=== PATIENT | male | born 1945 | race Caucasian/White ===

== ENCOUNTER 2018-07-08 14:52 | Inpatient (IN) ==
[~2018-07-08 14:52] MED LIST: *HR* Dextrose 50 % in Water (Syg) 50 ML SYRINGE IVC ONE; *HR* EPINEPHrine 1 MG/10 ML SYRINGE IVP ONE; *HR* Norepinephrine 4 MG/4 ML VIAL IVC ONE; D5% in Water 250 ML IV BAG IV ONE
[2018-07-08] MEDS ORDERED: 0.9 % Sodium Chloride 1,000 ML IVC ONE ×3 (15:08→20:37)
[2018-07-08] MEDS ORDERED: 0.9 % Sodium Chloride 1,000 ML ONE ×2 (15:09→19:22)
--- NOTE | 2018-07-08 15:09 | Emergency Department Note ---
Disposition Clinical Impression: Pneumonia, GEM (acute kidney injury), Epistaxis, GI bleeding, Sepsis Disposition: Admitted As Inpatient Condition: Good General Adult HPI - General Chief complaint: ED General Medical Stated complaint: Low BP, Nose bleed Time Seen by Provider: 07/08/18 15:01 Source: patient, EMS Limitations: no limitations - History of Present Illness Pain Scale: 0 - Related Data Home Medications Medication Instructions Recorded Confirmed Carvedilol [Coreg] 12.5 mg PO BID 02/10/16 07/08/18 Furosemide [Lasix] 80 mg PO DAILY 02/10/16 07/08/18 Lisinopril [Zestril] 20 mg PO DAILY 02/10/16 07/08/18 Pantoprazole Sodium [Protonix] 40 mg PO DAILY 02/10/16 07/08/18 Rivaroxaban [Xarelto] 20 mg PO DAILY 02/10/16 07/08/18 Spironolactone [Aldactone] 12.5 mg PO DAILY 02/10/16 07/08/18 Albuterol Sulfate [Albuterol 2 puff IH Q4HR PRN 07/08/18 07/08/18 Inhaler] Allopurinol [Zyloprim 100 MG] 100 mg PO DAILY 07/08/18 07/08/18 Ferrous Sulfate [Iron] 325 - 650 mg PO DAILY 07/08/18 07/08/18 Previous Rx's Medication Instructions Recorded Ipratropium/Albuterol Neb [Duoneb] 3 ml IH Q6HR 30 Days 02/14/16 Isosorbide MONOnitrate (24 HR) 30 mg PO DAILY 30 Days tab.er.24h 02/14/16 [Imdur] Allergies Allergy/AdvReac Type Severity Reaction Status Date / Time No Known Allergies Allergy Verified 07/08/18 17:28 Past Medical History - Past Medical History Medical history: Reports: atrial fibrillation, COPD, myocardial infarction, TIA Surgical history: Reports: coronary bypass (CABG), pacemaker/AICD (subsequent removal due to inf in Jul 2015) Psychiatric history: Reports: no psych history - Social History Smoking Status: Former smoker Smokeless Tobacco Status: No Alcohol use: Reports: none Drug use: Reports: none Physical Exam - General Limitations: no limitations General appearance: alert, in no apparent distress Course Vital Signs Temperature 97.8 F 07/08/18 15:02 Pulse Rate 86 07/08/18 15:02 Respiratory Rate 15 07/08/18 15:02 Blood Pressure 79/49 07/08/18 15:02 O2 Sat by Pulse Oximetry 100 07/08/18 15:02 Temperature 97.8 F 07/08/18 15:02 Pulse Rate 104 07/08/18 18:53 Respiratory Rate 34 07/08/18 19:16 Blood Pressure 124/56 07/08/18 18:53 O2 Sat by Pulse Oximetry 91 07/08/18 19:16 Oxygen Delivery Oxygen Delivery Bipap Medical Decision Making - Lab Data Result diagrams: 07/08/18 15:05 07/08/18 15:05 Lab Results 07/08/18 07/08/18 07/08/18 Range/Units 15:05 15:05 15:05 WBC 24.9 H (4.3-11.1) K/mcL RBC 3.13 L (4.19-5.50) M/mcL Hgb 10.4 L (12.9-16.9) g/dL Hct 31.2 L (37.5-50.1) % MCV 99.7 (83.0-100.0) fL MCH 33.2 (28.0-33.3) pg MCHC 33.3 (31.6-35.5) g/dL RDW 14.5 (11.5-14.5) % Plt Count 254 (140-400) K/mcL MPV 11.0 (9.4-12.4) fL Immature Gran % 2.5 (0-4) % Seg Neutrophils % 89.6 % Lymphocytes % 1.4 % Monocytes % 6.3 % Eosinophils % 0.1 % Basophils % 0.1 % Neutrophils # 22.3 H (1.6-8.9) K/mcL Lymphocytes # 0.4 L (0.6-4.6) K/mcL Monocytes # 1.6 H (0.0-1.3) K/mcL Eosinophils # 0.0 (0.0-0.6) K/mcL Basophils # 0.0 (0.0-0.2) K/mcL Platelet Estimate Normal (Normal) PT 29.5 H (9.4-12.1) Seconds INR 2.6 Sodium 136 (136-145) mEq/L Potassium 4.4 (3.5-5.1) mEq/L Chloride 111 H (98-107) mEq/L Carbon Dioxide 15 L (23-29) mEq/L BUN 103 H (8-23) mg/dL Creatinine 3.23 H (0.70-1.30) mg/dL Est GFR ( Amer) 23 L (> 60) Est GFR (Non-Af Amer) 19 L (> 60) BUN/Creatinine Ratio 32 H (6-26) Glucose 127 H (70-105) mg/dL Calculated Osmolality 316 H (280-300) Lactic Acid (0.5-2.2) mmol/L Calcium 8.6 (8.6-10.3) mg/dL Phosphorus (2.7-4.5) mg/dL Magnesium (1.6-2.6) mg/dL Troponin I (< 0.04) ng/mL Urine Color (Yellow) Urine Clarity (Clear) Urine pH (5.0-8.0) pH Units Ur Specific [place] (1.010-1.025) Urine Protein (Neg-Trace) mg/dL Urine Glucose (UA) (Normal) mg/dL Urine Ketones (Negative) mg/dL Urine Blood (Negative) Urine Nitrite (Negative) Urine Bilirubin (Negative) Urine Urobilinogen (Normal) mg/dL Ur Leukocyte Esterase (Negative) Stool Occult Bld Scrn (Negative) Blood Type Antibody Screen 07/08/18 07/08/18 07/08/18 Range/Units 15:05 15:17 16:26 WBC (4.3-11.1) K/mcL RBC (4.19-5.50) M/mcL Hgb (12.9-16.9) g/dL Hct (37.5-50.1) % MCV (83.0-100.0) fL MCH (28.0-33.3) pg MCHC (31.6-35.5) g/dL RDW (11.5-14.5) % Plt Count (140-400) K/mcL MPV (9.4-12.4) fL Immature Gran % (0-4) % Seg Neutrophils % % Lymphocytes % % Monocytes % % Eosinophils % % Basophils % % Neutrophils # (1.6-8.9) K/mcL Lymphocytes # (0.6-4.6) K/mcL Monocytes # (0.0-1.3) K/mcL Eosinophils # (0.0-0.6) K/mcL Basophils # (0.0-0.2) K/mcL Platelet Estimate (Normal) PT (9.4-12.1) Seconds INR Sodium (136-145) mEq/L Potassium (3.5-5.1) mEq/L Chloride (98-107) mEq/L Carbon Dioxide (23-29) mEq/L BUN (8-23) mg/dL Creatinine (0.70-1.30) mg/dL Est GFR ( Amer) (> 60) Est GFR (Non-Af Amer) (> 60) BUN/Creatinine Ratio (6-26) Glucose (70-105) mg/dL Calculated Osmolality (280-300) Lactic Acid (0.5-2.2) mmol/L Calcium (8.6-10.3) mg/dL Phosphorus (2.7-4.5) mg/dL Magnesium (1.6-2.6) mg/dL Troponin I (< 0.04) ng/mL Urine Color Yellow (Yellow) Urine Clarity Clear (Clear) Urine pH 5.5 (5.0-8.0) pH Units Ur Specific [place] 1.013 (1.010-1.025) Urine Protein Negative (Neg-Trace) mg/dL Urine Glucose (UA) Normal (Normal) mg/dL Urine Ketones Negative (Negative) mg/dL Urine Blood Negative (Negative) Urine Nitrite Negative (Negative) Urine Bilirubin Negative (Negative) Urine Urobilinogen Normal (Normal) mg/dL Ur Leukocyte Esterase Negative (Negative) Stool Occult Bld Scrn Positive A (Negative) Blood Type O POSITIVE Antibody Screen NEGATIVE 07/08/18 07/08/18 07/08/18 Range/Units 16:49 16:49 16:49 WBC (4.3-11.1) K/mcL RBC (4.19-5.50) M/mcL Hgb (12.9-16.9) g/dL Hct (37.5-50.1) % MCV (83.0-100.0) fL MCH (28.0-33.3) pg MCHC (31.6-35.5) g/dL RDW (11.5-14.5) % Plt Count (140-400) K/mcL MPV (9.4-12.4) fL Immature Gran % (0-4) % Seg Neutrophils % % Lymphocytes % % Monocytes % % Eosinophils % % Basophils % % Neutrophils # (1.6-8.9) K/mcL Lymphocytes # (0.6-4.6) K/mcL Monocytes # (0.0-1.3) K/mcL Eosinophils # (0.0-0.6) K/mcL Basophils # (0.0-0.2) K/mcL Platelet Estimate (Normal) PT (9.4-12.1) Seconds INR Sodium (136-145) mEq/L Potassium (3.5-5.1) mEq/L Chloride (98-107) mEq/L Carbon Dioxide (23-29) mEq/L BUN (8-23) mg/dL Creatinine (0.70-1.30) mg/dL Est GFR ( Amer) (> 60) Est GFR (Non-Af Amer) (> 60) BUN/Creatinine Ratio (6-26) Glucose (70-105) mg/dL Calculated Osmolality (280-300) Lactic Acid 1.9 (0.5-2.2) mmol/L Calcium (8.6-10.3) mg/dL Phosphorus 3.9 (2.7-4.5) mg/dL Magnesium 1.9 (1.6-2.6) mg/dL Troponin I 0.03 (< 0.04) ng/mL Urine Color (Yellow) Urine Clarity (Clear) Urine pH (5.0-8.0) pH Units Ur Specific [place] (1.010-1.025) Urine Protein (Neg-Trace) mg/dL Urine Glucose (UA) (Normal) mg/dL Urine Ketones (Negative) mg/dL Urine Blood (Negative) Urine Nitrite (Negative) Urine Bilirubin (Negative) Urine Urobilinogen (Normal) mg/dL Ur Leukocyte Esterase (Negative) Stool Occult Bld Scrn (Negative) Blood Type Antibody Screen Critical Care Time Critical Care Time: Yes Total Critical Care Time: 60 Attestation: The high probability of a clinically significant, sudden or life threatening deterioration of the [] system(s) required my full and direct attention, intervention and personal management. The aggregate critical care time was [] minutes. This time is in addition to time spent performing reported procedures but includes the following: [] Data Review and interpretation [] Patient assessment and monitoring of vital signs [] Documentation [] Medication orders and management Attestation Statement - Attestation Attestation: I examined this patient and my medical decision-making was reviewed with the Resident Physician. I agree with the documented findings, disposition and treatment plan as described except to the extent set forth below. [id number] time provided Patient appears pale and weak. He has right-sided epistaxis. He is hypotensive. He takes xarelto. The patient was evaluated in conjunction with the resident physician Dr. Nation 18:30: The patient was awaiting admission for pneumonia with sepsis as well as acute kidney injury, epistaxis. His breathing became more labored. He required BiPAP therapy. 19:30: The patient acutely deteriorated becoming bradycardic and hypoxic requiring endotracheal intubation. This was performed by the resident physician under my supervision. The patient then subsequently developed PEA. ACLS protocol followed.
--- NOTE | 2018-07-08 15:24 | Emergency Department Note ---
Disposition Clinical Impression: GEM (acute kidney injury), Epistaxis Pneumonia Qualifiers: Pneumonia type: due to unspecified organism Laterality: left Lung location: upper lobe of lung Qualified Code(s): J18.1 - Lobar pneumonia, unspecified organism GI bleeding Qualifiers: GI bleed type/associated pathology: unspecified gastrointestinal hemorrhage type Qualified Code(s): K92.2 - Gastrointestinal hemorrhage, unspecified Sepsis Qualifiers: Sepsis type: sepsis due to unspecified organism Qualified Code(s): A41.9 - Sepsis, unspecified organism Disposition: Admitted As Inpatient Condition: Good Referrals: Juan Jose Willingham DO [Primary Care Provider] - Forms: ED Satisfaction Letter, Work/School Release Time of Disposition: 17:09 General Adult HPI - General Chief complaint: ED General Medical Stated complaint: Low BP, Nose bleed Time Seen by Provider: 07/08/18 15:01 Source: patient, EMS Limitations: no limitations Nursing Notes Reviewed: Yes Vital Signs Reviewed: Yes - History of Present Illness HPI Narrative: No patient presenting to emergency complaining of one month history of generalized weakness. Has been getting worse. Over the last 4 days he has noticed some bleeding from his right ear with right ear pain that radiates to his head as well as to his neck. He was seen by his practitioner yesterday and now has a ENT consult from Wednesday. However this morning he started having nosebleed. He states he has to trash makes full of tissues and over tells that have blood on them. Patient is on Xarelto. 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 Also has a history of COPD. States that the nosebleed has decreased since this started this morning however he does feel weak. Shortness of breath and lightheadedness on ambulation. Does have a history of anemia. Several years ago he states he had have a blood transfusion. Is unaware of why or where the bleeding was coming from. He did have an upper and lower GI at that time. Patient denies any fevers or chills. He denies any chest pain at this time. He does report shortness of breath. States that he does have COPD however torso normal. No cough or congestion. States that the nosebleed has slowed down. Complaining of some vague abdominal pain. Did have one episode of vomiting this morning. States that he has not noticed blood in his stool or the vomit however he does have dark stools because he is on iron. Pain Scale: 0 - Related Data Home Medications Medication Instructions Recorded Confirmed Carvedilol [Coreg] 25 mg PO BID 02/10/16 02/10/16 Furosemide [Lasix] 40 mg PO DAILY 02/10/16 02/10/16 Lisinopril [Zestril] 20 mg PO DAILY 02/10/16 02/10/16 Pantoprazole Sodium [Protonix] 40 mg PO DAILY 02/10/16 02/10/16 Rivaroxaban [Xarelto] 20 mg PO DAILY 02/10/16 02/10/16 Spironolactone [Aldactone] 12.5 mg PO DAILY 02/10/16 02/10/16 Albuterol Sulfate [Albuterol 2 puff IH Q4HR PRN 07/08/18 07/08/18 Inhaler] Allopurinol [Zyloprim 100 MG] 100 mg PO DAILY 07/08/18 07/08/18 Ferrous Sulfate [Iron] 325 mg PO DAILY 07/08/18 07/08/18 Previous Rx's Medication Instructions Recorded Ipratropium/Albuterol Neb [Duoneb] 3 ml IH Q6HR 30 Days 02/14/16 Isosorbide MONOnitrate (24 HR) 30 mg PO DAILY 30 Days tab.er.24h 02/14/16 [Imdur] Allergies Allergy/AdvReac Type Severity Reaction Status Date / Time No Known Allergies Allergy Verified 07/08/18 17:28 All systems ED: reviewed and negative except as stated. Review of Systems: As Per HPI Constitutional: Denies: fever, chills Cardiovascular: Denies: chest pain, syncope Respiratory: Denies: cough, dyspnea Gastrointestinal: Reports: abdominal pain (Generalized), vomiting (One episode this morning). Denies: nausea, diarrhea, hematemesis, melena, hematochezia Genitourinary: Denies: urgency, dysuria Musculoskeletal: Denies: back pain, neck pain Hematological/Lymphatic: Reports: easy bleeding, other (Epistaxis since this morning. Right ear bleeding for 4 days.) Past Medical History - Past Medical History Attestation: Yes The following information was validated with the patient. Source: patient Medical history: Reports: atrial fibrillation, COPD, myocardial infarction, TIA Surgical history: Reports: coronary bypass (CABG), pacemaker/AICD (subsequent removal due to inf in Jul 2015) Psychiatric history: Reports: no psych history - Social History Smoking Status: Former smoker Smokeless Tobacco Status: No Alcohol use: Reports: none Drug use: Reports: none Physical Exam - General Limitations: no limitations General appearance: alert, other (Patient pallor) - Head Head exam: atraumatic, normocephalic, normal inspection - Eye Eye exam: Present: normal appearance, PERRL, EOMI - ENT ENT exam: normal oropharynx, mucous membranes moist, other (White mass in the right auditory canal. Full blood in this area as well. Left ear canal is cerumen impacted. ) - Neck Neck exam: Present: normal inspection, full ROM, trachea midline. Absent: tenderness - Chest Chest inspection: Present: normal inspection, symmetric chest wall rise - Respiratory Respiratory exam: Present: other (Coarse throughout). Absent: respiratory distress, accessory muscle use - Cardiovascular Cardiovascular exam: Present: regular rate, normal rhythm, normal heart sounds - Abdominal Exam Abdominal exam: Present: soft, tenderness (Diffusely.). Absent: distention, guarding, rigidity, organomegaly, Monique's sign, Rovsing's sign, tenderness at McBurney's Point - Extremities Exam Extremities exam: Present: normal inspection, full ROM, normal capillary refill. Absent: tenderness, pedal edema - Back Exam Back exam: Present: normal inspection, full ROM. Absent: tenderness - Neurological Exam Neurological exam: Present: alert, oriented X3 - Psychiatric Psychiatric exam: Present: normal affect, normal mood - Skin Skin exam: Present: dry, pallor. Absent: rash Course Course Narrative: No patient is mildly hypotensive on arrival. We will give him a liter of fluid at this time. Lung sounds are coarse throughout he does not appear to be in any respiratory distress however he does have a pallor color about him. He does have a mild trickle of a nosebleed to the right that has not produced enough to even wipe off the space while I am in the room examining him. He states that this is almost stopped at this time. Also has some cold blood to the right external auditory meatus. He has a white mass on the external auditory canal on the right. He does complain of pain whenever I attempt to look at his TM. I cannot visualize his TM on the right. The left ear is cerumen impacted. He does report pain to the right side of his head as well as the right neck. I do not appreciate any masses his head or neck. Patient also complains of some mild abdominal pain whenever I palpate his abdomen. He cannot state what type of pain this is. He just describes as a cramping sensation. Rectal exam was performed at it appears that he has some dried blood in his underwear however did not notice miller blood on the rectal exam. He had good rectal tone. No hemorrhoids noted. Patient does have what appears to be skin changes from where he has been laying around over the past week because he states he is weak. This is to the buttocks area however does not appear to be broken down at any time or have any open areas. We will get a basic lab workup on patient and type and screen him. We will also get a head CT neck CT and chest and abdomen CT. I do anticipate admission for the patient. He will likely also need a blood transfusion. He is agreeable with this. - Reevaluation(s) Reevaluation #1: Patient now meets sepsis criteria as he is tachypneic and has a leukocytosis. Sepsis subset was added. We are sending for cultures as well as lactic acid at this time. We will start patient on Vanco and Zosyn for his pneumonia as well as the urinary tract infection. Patient does have a history of CHF. He has had 1 L of fluid we will add a second at this time. We are reassessing in between the liters of fluid. Patient remains mildly hypotensive but mentating appropriately. Patient's oxygen saturation did decrease to the high 80s. He does have a history of COPD and generally wears oxygen at home. He has been using [address] him on oxygen which raised his oxygen saturation. Patient does have some expiratory wheezing. We will give patient DuoNeb at this time. Time: 16:34 - Consultations Consultation #1: Dr Booker recommended 2 sprays every 2 hours of nasal spray as well as having Afrin and 2 Rhino Rocket at bedside. He recommends the patient not blow his nose or touch his nose. He states he will be available for consult throughout the weekend. Time: 17:22 Consultation #2: Dr Cardona accepted patient in stable condition. He did request for a ENT consult. We did discuss the patient with ENT. Time: 17:50 Vital Signs Temperature 97.8 F 07/08/18 15:02 Pulse Rate 86 07/08/18 15:02 Respiratory Rate 15 07/08/18 15:02 Blood Pressure 79/49 07/08/18 15:02 O2 Sat by Pulse Oximetry 100 07/08/18 15:02 Temperature 97.8 F 07/08/18 15:02 Pulse Rate 97 07/08/18 16:16 Respiratory Rate 26 07/08/18 17:04 Blood Pressure 146/122 07/08/18 16:16 O2 Sat by Pulse Oximetry 95 07/08/18 17:04 Oxygen Delivery Oxygen Delivery Nasal Cannula Medical Decision Making - Medical Records Medical records reviewed: Yes I reviewed the patient's medical records. - Lab Data Lab results reviewed: Yes I reviewed the patient's lab results. Result diagrams: 07/08/18 15:05 07/08/18 15:05 Lab Results 07/08/18 07/08/18 07/08/18 Range/Units 15:05 15:05 15:05 WBC 24.9 H (4.3-11.1) K/mcL RBC 3.13 L (4.19-5.50) M/mcL Hgb 10.4 L (12.9-16.9) g/dL Hct 31.2 L (37.5-50.1) % MCV 99.7 (83.0-100.0) fL MCH 33.2 (28.0-33.3) pg MCHC 33.3 (31.6-35.5) g/dL RDW 14.5 (11.5-14.5) % Plt Count 254 (140-400) K/mcL MPV 11.0 (9.4-12.4) fL Immature Gran % 2.5 (0-4) % Seg Neutrophils % 89.6 % Lymphocytes % 1.4 % Monocytes % 6.3 % Eosinophils % 0.1 % Basophils % 0.1 % Neutrophils # 22.3 H (1.6-8.9) K/mcL Lymphocytes # 0.4 L (0.6-4.6) K/mcL Monocytes # 1.6 H (0.0-1.3) K/mcL Eosinophils # 0.0 (0.0-0.6) K/mcL Basophils # 0.0 (0.0-0.2) K/mcL Platelet Estimate Normal (Normal) PT 29.5 H (9.4-12.1) Seconds INR 2.6 Sodium 136 (136-145) mEq/L Potassium 4.4 (3.5-5.1) mEq/L Chloride 111 H (98-107) mEq/L Carbon Dioxide 15 L (23-29) mEq/L BUN 103 H (8-23) mg/dL Creatinine 3.23 H (0.70-1.30) mg/dL Est GFR ( Amer) 23 L (> 60) Est GFR (Non-Af Amer) 19 L (> 60) BUN/Creatinine Ratio 32 H (6-26) Glucose 127 H (70-105) mg/dL Calculated Osmolality 316 H (280-300) Lactic Acid (0.5-2.2) mmol/L Calcium 8.6 (8.6-10.3) mg/dL Phosphorus (2.7-4.5) mg/dL Magnesium (1.6-2.6) mg/dL Urine Color (Yellow) Urine Clarity (Clear) Urine pH (5.0-8.0) pH Units Ur Specific Cummings (1.010-1.025) Urine Protein (Neg-Trace) mg/dL Urine Glucose (UA) (Normal) mg/dL Urine Ketones (Negative) mg/dL Urine Blood (Negative) Urine Nitrite (Negative) Urine Bilirubin (Negative) Urine Urobilinogen (Normal) mg/dL Ur Leukocyte Esterase (Negative) Stool Occult Bld Scrn (Negative) Blood Type Antibody Screen 07/08/18 07/08/18 07/08/18 Range/Units 15:05 15:17 16:26 WBC (4.3-11.1) K/mcL RBC (4.19-5.50) M/mcL Hgb (12.9-16.9) g/dL Hct (37.5-50.1) % MCV (83.0-100.0) fL MCH (28.0-33.3) pg MCHC (31.6-35.5) g/dL RDW (11.5-14.5) % Plt Count (140-400) K/mcL MPV (9.4-12.4) fL Immature Gran % (0-4) % Seg Neutrophils % % Lymphocytes % % Monocytes % % Eosinophils % % Basophils % % Neutrophils # (1.6-8.9) K/mcL Lymphocytes # (0.6-4.6) K/mcL Monocytes # (0.0-1.3) K/mcL Eosinophils # (0.0-0.6) K/mcL Basophils # (0.0-0.2) K/mcL Platelet Estimate (Normal) PT (9.4-12.1) Seconds INR Sodium (136-145) mEq/L Potassium (3.5-5.1) mEq/L Chloride (98-107) mEq/L Carbon Dioxide (23-29) mEq/L BUN (8-23) mg/dL Creatinine (0.70-1.30) mg/dL Est GFR ( Amer) (> 60) Est GFR (Non-Af Amer) (> 60) BUN/Creatinine Ratio (6-26) Glucose (70-105) mg/dL Calculated Osmolality (280-300) Lactic Acid (0.5-2.2) mmol/L Calcium (8.6-10.3) mg/dL Phosphorus (2.7-4.5) mg/dL Magnesium (1.6-2.6) mg/dL Urine Color Yellow (Yellow) Urine Clarity Clear (Clear) Urine pH 5.5 (5.0-8.0) pH Units Ur Specific Cummings 1.013 (1.010-1.025) Urine Protein Negative (Neg-Trace) mg/dL Urine Glucose (UA) Normal (Normal) mg/dL Urine Ketones Negative (Negative) mg/dL Urine Blood Negative (Negative) Urine Nitrite Negative (Negative) Urine Bilirubin Negative (Negative) Urine Urobilinogen Normal (Normal) mg/dL Ur Leukocyte Esterase Negative (Negative) Stool Occult Bld Scrn Positive A (Negative) Blood Type O POSITIVE Antibody Screen NEGATIVE 07/08/18 07/08/18 07/08/18 Range/Units 16:49 16:49 16:49 WBC (4.3-11.1) K/mcL RBC (4.19-5.50) M/mcL Hgb (12.9-16.9) g/dL Hct (37.5-50.1) % MCV (83.0-100.0) fL MCH (28.0-33.3) pg MCHC (31.6-35.5) g/dL RDW (11.5-14.5) % Plt Count (140-400) K/mcL MPV (9.4-12.4) fL Immature Gran % (0-4) % Seg Neutrophils % % Lymphocytes % % Monocytes % % Eosinophils % % Basophils % % Neutrophils # (1.6-8.9) K/mcL Lymphocytes # (0.6-4.6) K/mcL Monocytes # (0.0-1.3) K/mcL Eosinophils # (0.0-0.6) K/mcL Basophils # (0.0-0.2) K/mcL Platelet Estimate (Normal) PT (9.4-12.1) Seconds INR Sodium (136-145) mEq/L Potassium (3.5-5.1) mEq/L Chloride (98-107) mEq/L Carbon Dioxide (23-29) mEq/L BUN (8-23) mg/dL Creatinine (0.70-1.30) mg/dL Est GFR ( Amer) (> 60) Est GFR (Non-Af Amer) (> 60) BUN/Creatinine Ratio (6-26) Glucose (70-105) mg/dL Calculated Osmolality (280-300) Lactic Acid 1.9 (0.5-2.2) mmol/L Calcium (8.6-10.3) mg/dL Phosphorus 3.9 (2.7-4.5) mg/dL Magnesium 1.9 (1.6-2.6) mg/dL Urine Color (Yellow) Urine Clarity (Clear) Urine pH (5.0-8.0) pH Units Ur Specific Cummings (1.010-1.025) Urine Protein (Neg-Trace) mg/dL Urine Glucose (UA) (Normal) mg/dL Urine Ketones (Negative) mg/dL Urine Blood (Negative) Urine Nitrite (Negative) Urine Bilirubin (Negative) Urine Urobilinogen (Normal) mg/dL Ur Leukocyte Esterase (Negative) Stool Occult Bld Scrn (Negative) Blood Type Antibody Screen - Radiology Data Radiology results reviewed: Yes I reviewed the patient's radiology results. Abdomen/Pelvis CT 07/08/18 15:19 IMPRESSION: Prominent consolidation within left upper lobe, most compatible with pneumonia. Scattered tree-in-bud nodular opacities are seen throughout the remainder the lungs, most likely inflammatory infectious bronchiolitis. Prominent bronchial wall thickening throughout both lungs, compatible with acute and/or chronic bronchitis or reactive airways disease. The inflammatory/infectious changes within the lungs should be followed to resolution. Within the abdomen pelvis, there is prominent perinephric fat stranding bilaterally. Although some this could be age related or related to previous urinary tract infections, correlate with any current evidence of urinary tract infection. There has been enlargement of the left inguinal hernia, now containing a loop of large bowel, but without evidence of obstruction at this time. D/ / Kamari Mortensen MD / Kamari Mortensen MD Interpreting Provider: Kamari Mortensen MD Chest CT 07/08/18 15:19 IMPRESSION: Prominent consolidation within left upper lobe, most compatible with pneumonia. Scattered tree-in-bud nodular opacities are seen throughout the remainder the lungs, most likely inflammatory infectious bronchiolitis. Prominent bronchial wall thickening throughout both lungs, compatible with acute and/or chronic bronchitis or reactive airways disease. The inflammatory/infectious changes within the lungs should be followed to resolution. Within the abdomen pelvis, there is prominent perinephric fat stranding bilaterally. Although some this could be age related or related to previous urinary tract infections, correlate with any current evidence of urinary tract infection. There has been enlargement of the left inguinal hernia, now containing a loop of large bowel, but without evidence of obstruction at this time. D/ / Kamari Mortensen MD / Kamari Mortensen MD Interpreting Provider: Kamari Mortensen MD Head CT 07/08/18 15:19 IMPRESSION: 1. No acute intracranial abnormality. D/ / Zenon Villegas MD / Zenon Villegas MD Interpreting Provider: Zenon Villegas MD Internal Auditory Canal CT 07/08/18 15:32 IMPRESSION: 1. Right mastoid and middle ear effusions without evidence of coalescent mastoiditis. 2. Irregular soft tissue filling the right external auditory canal may represent cerumen or other lesion. Correlate with direct inspection. 3. Nonspecific fluid in the right maxillary sinus. Correlate for symptoms of acute sinusitis. D/ / 07/08/2018 16:40:28 Brandt Rubi MD / lgray Interpreting Provider: Brandt Rubi MD - EKG Data EKG #1 EKG attestation: Yes I reviewed and interpreted this EKG. EKG results narrative: A. fib at a rate of 92. QRS duration is 157. QT is 47. QTC is 490. Patient does not need scarbosa criteria for acute ischemia. EKG #2 EKG attestation: Yes I reviewed and interpreted this EKG. EKG results narrative: A. fib at a rate 88. CT interval is not measured. QRS duration is 147. QT is 47. QTC is 464. No signs of ischemia.
[2018-07-08 15:31] LABS: Basophils % 0.1 %; Eosinophils % 0.1 %; Hematocrit 31.2 % (37.5-50.1); Hemoglobin 10.4 g/dL (12.9-16.9); Immature Granulocytes % 2.5 % (0-4); Lymphocytes # 0.4 K/mcL (0.6-4.6); Lymphocytes % 1.4 %; Mean Corpuscular HGB Conc 33.3 g/dL (31.6-35.5); Mean Corpuscular Hemoglobin 33.2 pg (28.0-33.3); Mean Corpuscular Volume 99.7 fL (83.0-100.0); Monocytes # 1.6 K/mcL (0.0-1.3); Monocytes % 6.3 %; Neutrophils # 22.3 K/mcL (1.6-8.9); Platelet Count 254 K/mcL (140-400); Red Blood Count 3.13 M/mcL (4.19-5.50); Red Cell Distribution Width 14.5 % (11.5-14.5); Segmented Neutrophils % 89.6 %
[2018-07-08 15:40] LABS: INR 2.6; Prothrombin Time 29.5 Seconds (9.4-12.1)
[2018-07-08 15:47] LABS: Calcium 8.6 mg/dL (8.6-10.3); Potassium 4.4 mEq/L (3.5-5.1)
[2018-07-08 16:00] LABS: Platelet Estimate Normal (Normal)
[2018-07-08] MEDS ORDERED: Piperacillin/Tazobactam 3.375 GM in Water for inj. (sterile) 20 ML 20 ML IVP ONE (16:34)
[2018-07-08 16:37] LABS: Bilirubin,Urine Negative (Negative); Blood,Urine Negative (Negative); Clarity,Urine Clear (Clear); Color,Urine Yellow (Yellow); Glucose,Urine (UA) Normal (Normal); Ketones,Urine Negative (Negative); Leukocyte Esterase,Urine Negative (Negative); Nitrite,Urine Negative (Negative); PH,Urine 5.5 pH Units (5.0-8.0); Protein,Urine Negative (Neg-Trace); Specific Gravity,Urine 1.013 (1.010-1.025); Urobilinogen,Urine Normal (Normal)
[2018-07-08] MEDS ORDERED: Ipratropium/Albuterol Neb 3 ML IH ONE (16:45)
[2018-07-08] MEDS ORDERED: Oxymetazoline Nasal SPRAY BOTTLE NS PRN (16:59)
[2018-07-08 17:27] LABS: Magnesium 1.9 mg/dL (1.6-2.6); Troponin I 0.03 ng/mL (< 0.04)
[2018-07-08] MEDS ORDERED: 0.9 % Sodium Chloride 1,000 ML IVC SCH (17:45)
[2018-07-08] MEDS ORDERED: Naloxone 0.4 MG/ML INJ IVP PRN (17:45)
[2018-07-08] MEDS ORDERED: *HR* OxyCODONE/APAP 7.5/325 TABLET PO ONE (17:54)
[2018-07-08] MEDS ORDERED: Ipratropium/Albuterol Neb 3 ML IH SCH (18:00)
[2018-07-08] MEDS ORDERED: Levofloxacin 750 MG/150 ML 750 MG/150 ML BAG IVPB SCH ×2 (18:00)
--- NOTE | 2018-07-08 18:15 | Internal Med History&Physical ---
Date of Encounter: 07/08/18 Time of Encounter: 18:00 Internal Medicine - H&P: HPI Chief complaint: generalized weakness, epistaxis Admitted From: Home History of present illness: Mr. Delgado is a 73 year old male past medical history of Afib, COPD, heart failure with reduced EF with 15% EF status post AICD, CKD, presented to the ED with 1 month history of generalized weakness and nosebleed that started about 4 days ago. Weakness was gradually worsening, associated with cough and shortness of breath but was unable to expectorate much sputum due to weakness. Subjective fever/chills but no actual measurement was done. Denies any chest pain, palpitation, orthopnea, PND, or leg swelling. His nosebleed first started on Wednesday and he eventually developed small amount of oozing from the right ear subsequently. He does take Xarelto for Afib at home. No abdominal pain, change in bowel habits, melena, hematemesis, hematochezia, or bright red blood per rectum. No N/V, joint pain, or rash. In the ED, he was hypotensive and tachypneic. He was saturating well on 3 L of oxygen which he intermittently uses at home. That showed leukocytosis of 24.9, platelet 254, INR 2.6, and BUN/ creatinine 103/3.23 (baseline around 1.4). Urinalysis was negative for leukocyte esterase or nitrite. CT scan of head, chest, abdomen/pelvis, and internal auditory canal was done which showed 1) prominent left upper lobe consolidation along with findings suggestive of infectious bronchiolitis and acute +/- chronic bronchitis, 2) prominent perinephric fat stranding bilaterally , 3) enlarging inguinal hernia without obstruction, 4) right mastoid and middle ear effusions and irregular soft tissue filling in the right EAC ?cerumen and non-specific fluid in R maxillary sinus. He was given 2 L of IV fluid in the ER which improved his blood pressure and was also given Vanc/zosyn -> he was admitted for further management. Past Med Surg Social Fam HX - Past Medical History Attestation: Yes The following information was validated with the patient. Medical history: atrial fibrillation, cardiomyopathy, COPD, coronary artery disease, myocardial infarction, renal disease, TIA Psychiatric history: no psych history - Past Surgical History Surgical History: coronary bypass (CABG), pacemaker/AICD (subsequent removal due to inf in Jul 2015) Additional surgical history: hernia repair - Social History Smoking Status: Former smoker Smokeless Tobacco Status: No Alcohol use: none Drug use: none - Family History Father Family Member Ethnicity: Non- Living Status: Hx Family Cardiac Disorders: Yes Internal Medicine - H&P: Meds Carvedilol [Coreg] 12.5 mg PO BID 02/10/16 [History] Furosemide [Lasix] 80 mg PO DAILY 02/10/16 [History] Lisinopril [Zestril] 20 mg PO DAILY 02/10/16 [History] Pantoprazole Sodium [Protonix] 40 mg PO DAILY 02/10/16 [History] Rivaroxaban [Xarelto] 20 mg PO DAILY 02/10/16 [History] Spironolactone [Aldactone] 12.5 mg PO DAILY 02/10/16 [History] Ipratropium/Albuterol Neb [Duoneb] 3 ml IH Q6HR 30 Days 02/14/16 [Rx] Isosorbide MONOnitrate (24 HR) [Imdur] 30 mg PO DAILY 30 Days tab.er.24h [Rx] Albuterol Sulfate [Albuterol Inhaler] 2 puff IH Q4HR PRN 07/08/18 [History] Allopurinol [Zyloprim 100 MG] 100 mg PO DAILY 07/08/18 [History] Ferrous Sulfate [Iron] 325 - 650 mg PO DAILY 07/08/18 [History] 3 Allergy/AdvReac Type Severity Reaction Status Date / Time No Known Allergies Allergy Verified 07/08/18 17:28 All Systems PM: A 10-system review of systems was performed and is negative for pertinent findings except as documented above in the HPI. - Constitutional Vitals: Temp Pulse Resp BP Pulse Ox 97.8 F 99 22 104/86 94 07/08/18 15:02 07/08/18 18:04 07/08/18 18:04 07/08/18 18:04 07/08/18 18:04 Exam: General: Alert and oriented, in moderate respiratory distress. HEENT:EOM, pupils equal, round and reactive. Small amount of blood noted in both nostrils and R external auditory canal. No active bleeding seen. Cardiovascular:Normal S1 & S2, No JVD. Irregular rhythm, borderline tachycardia Lungs: Rhonchi bilaterally, no wheezes Abdomen:Soft, non-tender, no rigidity. Extremities:No deformity or swelling Neurological: grossly no focal deficits Skin:Normal color, no rash Pulses:Carotid and radial pulses normal +2. Rest of the physical exam is non contributory Internal Med - H&P Results - Labs CBC & Chem 7: 07/08/18 15:05 07/08/18 15:05 Labs: Short CBC 07/08/18 Range/Units 15:05 WBC 24.9 H (4.3-11.1) K/mcL Hgb 10.4 L (12.9-16.9) g/dL Hct 31.2 L (37.5-50.1) % Plt Count 254 (140-400) K/mcL Neutrophils # 22.3 H (1.6-8.9) K/mcL BMP 07/08/18 15:05 Sodium 136 Potassium 4.4 Chloride 111 H Carbon Dioxide 15 L BUN 103 H Creatinine 3.23 H Glucose 127 H Calcium 8.6 Cardiac Enzymes 07/08/18 Range/Units 16:49 Troponin I 0.03 (< 0.04) ng/mL Urine 07/08/18 Range/Units 16:26 Urine Color Yellow (Yellow) Urine Clarity Clear (Clear) Urine pH 5.5 (5.0-8.0) pH Units Ur Specific [place] 1.013 (1.010-1.025) Urine Protein Negative (Neg-Trace) mg/dL Urine Glucose (UA) Normal (Normal) mg/dL - Impressions ITS Impressions Abdomen/Pelvis CT 07/08/18 15:19 IMPRESSION: Prominent consolidation within left upper lobe, most compatible with pneumonia. Scattered tree-in-bud nodular opacities are seen throughout the remainder the lungs, most likely inflammatory infectious bronchiolitis. Prominent bronchial wall thickening throughout both lungs, compatible with acute and/or chronic bronchitis or reactive airways disease. The inflammatory/infectious changes within the lungs should be followed to resolution. Within the abdomen pelvis, there is prominent perinephric fat stranding bilaterally. Although some this could be age related or related to previous urinary tract infections, correlate with any current evidence of urinary tract infection. There has been enlargement of the left inguinal hernia, now containing a loop of large bowel, but without evidence of obstruction at this time. D/ / Kamari Mortensen MD / Kamari Mortensen MD Interpreting Provider: Kamari Mortensen MD Chest CT 07/08/18 15:19 IMPRESSION: Prominent consolidation within left upper lobe, most compatible with pneumonia. Scattered tree-in-bud nodular opacities are seen throughout the remainder the lungs, most likely inflammatory infectious bronchiolitis. Prominent bronchial wall thickening throughout both lungs, compatible with acute and/or chronic bronchitis or reactive airways disease. The inflammatory/infectious changes within the lungs should be followed to resolution. Within the abdomen pelvis, there is prominent perinephric fat stranding bilaterally. Although some this could be age related or related to previous urinary tract infections, correlate with any current evidence of urinary tract infection. There has been enlargement of the left inguinal hernia, now containing a loop of large bowel, but without evidence of obstruction at this time. D/ / Kamari Mortensen MD / Kamari Mortensen MD Interpreting Provider: Kamari Mortensen MD Head CT 07/08/18 15:19 IMPRESSION: 1. No acute intracranial abnormality. D/ / Zenon Villegas MD / Zenon Villegas MD Interpreting Provider: Zenon Villegas MD Internal Auditory Canal CT 07/08/18 15:32 IMPRESSION: 1. Right mastoid and middle ear effusions without evidence of coalescent mastoiditis. 2. Irregular soft tissue filling the right external auditory canal may represent cerumen or other lesion. Correlate with direct inspection. 3. Nonspecific fluid in the right maxillary sinus. Correlate for symptoms of acute sinusitis. D/ / 07/08/2018 16:40:28 Brandt Rubi MD / manny Interpreting Provider: Brandt Rubi MD - Assessment and plan (1) Severe sepsis Current Visit: Yes Status: Acute Assessment and plan: Presented with generalized weakness associated with cough, hypotensive, tachypnea, and leukocytosis on presentation lactic acid normal CT shows prominent left upper lobe consolidation consistent with pneumonia, no recent hospitalization Given IV Vanco and Zosyn in the ED Unable to identify any risk factors for pseudomonas or MRSA. Nevertheless, given his chronic lung disease, will cover with IV levaquin, renally dosed supplemental O2, given his nosebleed, may not be a candidate for BiPaP -> if continues to deteriorate, will need intubation which patient wants strep, legionella ag, sputum culture 500ml boluses PRN for hypotension (2) Pneumonia Current Visit: Yes Status: Acute Assessment and plan: As above Qualifiers: Pneumonia type: due to unspecified organism Laterality: left Lung location: upper lobe of lung Qualified Code(s): J18.1 - Lobar pneumonia, unspecified organism (3) Acute on chronic kidney failure Current Visit: Yes Status: Acute Assessment and plan: Combination of prerenal and ATN from sepsis, baseline Cr appears to be around 1.4 given 2L IVF in the ED EF 15% on echo 01/2018, will cautiously hydrate her with maintenance fluid of 50ml/hr bladder scan strict I/O, spicer catheter Avoid nephrotoxins, renally adjusted antibiotics may require nephrology consult if continues to worsen Qualifiers: Acute renal failure type: unspecified Chronic kidney disease stage: stage 3 (moderate) Qualified Code(s): N17.9 - Acute kidney failure, unspecified; N18.3 - Chronic kidney disease, stage 3 (moderate) (4) Epistaxis Current Visit: Yes Status: Acute Assessment and plan: Evaluated by ENT in the ED, Hb around his baseline CT IAC as above nasal spray per ENT, if uncontrolled, please contact ENT protection engineer Hold off on Xarelto (5) Heart failure with reduced ejection fraction Current Visit: Yes Status: Acute Assessment and plan: Currently appears hypovolemic IVF as above Hold off on Lasix, beta timi, ARABELLA inhibitor, and Aldactone Qualifiers: Heart failure chronicity: chronic Qualified Code(s): I50.22 - Chronic systolic (congestive) heart failure (6) Afib Current Visit: No Status: Chronic Assessment and plan: Xarelto and beta timi on hold as above Qualifiers: Atrial fibrillation type: paroxysmal Qualified Code(s): I48.0 - Paroxysmal atrial fibrillation (7) COPD (chronic obstructive pulmonary disease) Current Visit: No Status: Chronic Assessment and plan: ?not on any long-term inhalers at home duoneb PRN Qualifiers: COPD type: unspecified COPD Qualified Code(s): J44.9 - Chronic obstructive pulmonary disease, unspecified (8) DVT prophylaxis Current Visit: Yes Status: Acute Assessment and plan: SCD - Time Spent With Patient Total time spent is greater than 50% in coordination of care (as documented) at patient's floor/unit and/or counseling patient: Greater than 35 minutes
[2018-07-08] MEDS ORDERED: 0.9 % Sodium Chloride 500 ML IVC PRN (18:24)
[2018-07-08] MEDS ORDERED: *HR* HYDROcodone/Acet 5/325 mg TABLET PO PRN (18:44)
[2018-07-08] MEDS ORDERED: Acetaminophen 325 MG TABLET PO PRN (18:44)
[2018-07-08] MEDS ORDERED: *HR* OxyCODONE Immed Rel 5 MG TABLET PO PRN (18:44)
[2018-07-08] MEDS ORDERED: *HR* LORazepam 2 MG/ML VIAL IVP ONE (18:57)
[2018-07-08] MEDS ORDERED: *HR* LORazepam 2 MG/ML VIAL ONE (19:01)
[2018-07-08] MEDS ORDERED: Nitroglycerin 0.4 MG TAB.SUBL SL ONE (19:14)
[2018-07-08] MEDS ORDERED: *HR* Succinylcholine 200 MG/10 ML VIAL IVP ONE ×2 (19:28→20:08)
[2018-07-08] MEDS ORDERED: *HR* Etomidate 20 MG/10 ML AMPUL IVP ONE (19:28)
[2018-07-08] MEDS ORDERED: *HR* FentaNYL (PF) 100 MCG/2 ML VIAL ONE (19:52)
--- NOTE | 2018-07-08 19:59 | Pulmonology Consult Note ---
<Darrel Fernandez - Last Filed: 07/09/18 07:04> Date of Encounter: 07/09/18 Time of Encounter: 19:59 Assessment and Plan (1) Acute on chronic respiratory failure with hypoxia and hypercapnia Current Visit: Yes Status: Acute Patient developed acute respiratory failure during cardiopulmonary arrest Patient was intubated in the ED and transferred to ICU for critical care management ABG revealed pH 6.77, pCO2 88, PO2 106, bicarbonate 11, and O2 sat 88% after he was on the ventilator for an hour. Ventilator setting were adjusted at critical care attending's recommendation and patient was given 3 amps of bicarbonate and started on bicarbonate drip ABG revealed pH 7.31, pCO2 42, PO2 92, bicarbonate 21, and O2 sat 96% Continue ventilator support (2) Septic shock Current Visit: Yes Status: Acute Patient met septic shock criteria with hypotension, hypothermia temp 93.4, tachycardia heart rate 140, tachypnea respiratory rate 37, and community acquired pneumonia as likely source of infection Patient given sepsis IV fluid bolus with refractory hypotension, patient started on pressors: norepinephrine, vasopressin, dopamine, and epinephrine Patient given albumin and Lasix x2 secondary to acute pulmonary edema from aggressive fluid resuscitation Initial lactic acid level I.9, repeat level 4.4, repeat level 4.7, repeat lactate level pending Continue empiric antibiotics Blood cultures pending Sputum culture pending Condition remains guarded despite appropriate medical interventions (3) Cardiac arrest with pulseless electrical activity Current Visit: Yes Status: Resolved Patient had PEA and received two rounds of Epinephrine, 1 amp of Calcium, and 1 amp of D50 before achieving spontaneous return of circulation. We were unable to perform hypothermia protocol secondary to acute nasal bleeding. (4) Cardiogenic shock Current Visit: Yes Status: Acute Patient status post ROSC Started on dopamine pressor support Last EF 15% in 2016, repeat Echo pending (5) STEMI (ST elevation myocardial infarction) Current Visit: Yes Status: Acute EKG revealed ST elevations and inferior leads II, aVF. Case discussed with rn intensive care unit on-call. Insole Coverer reviewed EKGs and given clinical status, septic shock, and history of severely reduced EF 15%, he did not recommend further cardiac intervention at this point. Qualifiers: Involved coronary artery: unspecified coronary artery Qualified Code(s): I21.3 - ST elevation (STEMI) myocardial infarction of unspecified site (6) Heart failure with reduced ejection fraction Current Visit: Yes Status: Acute Qualifiers: Heart failure chronicity: chronic Qualified Code(s): I50.22 - Chronic systolic (congestive) heart failure (7) Afib Current Visit: No Status: Chronic Patient takes Xarelto for A. fib INR was 3.0, he was given vitamin K and 2 units FFP. Repeat INR 2.5 Qualifiers: Atrial fibrillation type: paroxysmal Qualified Code(s): I48.0 - Paroxysmal atrial fibrillation (8) Community acquired pneumonia Current Visit: No Status: Acute Continue empiric antibiotics vancomycin, Zosyn, Levaquin Cultures and sputum culture pending Qualifiers: Laterality: unspecified laterality Qualified Code(s): J18.9 - Pneumonia, unspecified organism (9) Acute renal failure (ARF) Current Visit: Yes Status: Acute ARF in the setting of septic shock Patient received generous fluid resuscitation Slowly improving, continue monitoring Qualifiers: Acute renal failure type: unspecified Qualified Code(s): N17.9 - Acute kidney failure, unspecified (10) Acute on chronic kidney failure Current Visit: Yes Status: Acute Qualifiers: Acute renal failure type: unspecified Chronic kidney disease stage: stage 3 (moderate) Qualified Code(s): N17.9 - Acute kidney failure, unspecified; N18.3 - Chronic kidney disease, stage 3 (moderate) (11) Anemia Current Visit: No Status: Acute Positive FOBT in the setting of epistaxis. Hemoglobin stable. Low suspicion for GI bleed. Would monitor for melena, hematochezia, or BRBPR. Qualifiers: Anemia type: unspecified type Qualified Code(s): D64.9 - Anemia, unspecified (12) Epistaxis Current Visit: Yes Status: Acute Continue monitoring (13) DVT prophylaxis Current Visit: Yes Status: Acute EPCDs History of Present Illness Consult date: 07/08/18 Requesting physician: Finesse Myers Reason for consult: other (Septic shock, acute respiratory failure, s/p ROSC) Chief complaint: Septic shock History of present illness: Mr. Delgado is a 73-year-old male with a past medical history of AICD for systolic CHF with EF 15%, atrial fibrillation on Xarelto, COPD, CKD, and CAD who was admitted for sepsis, pneumonia, and acute nose bleed who was placed on BiPAP and developed acute respiratory failure and subsequent cardiopulmonary arrest in the emergency room while awaiting transfer to inpatient unit upon admission. Patient had PEA and received two rounds of Epinephrine, 1 amp of Calcium, and 1 amp of D50 before achieving spontaneous return of circulation. He was emergently intubated during ACLS resuscitation. Right IJ CVC was placed prior to transfer to the ICU. Once in ICU, ABG revealed pH 6.77, pCO2 88, PO2 106, bicarbonate 11, and O2 sat 88% after he was on the ventilator for an hour. Ventilator setting were adjusted at critical care attending's recommendation and patient was given 3 amps of bicarbonate and started on bicarbonate drip. Patient's lactic acid increased to 4.4 and INR was 3.0, he was given vitamin K and 2 units FFP. We were unable to perform hypothermia protocol secondary to acute nasal bleeding. EKG revealed ST elevations and inferior leads II, aVF. Case discussed with rn intensive care unit on-call. Insole Coverer reviewed EKGs and given clinical status, septic shock, and history of severely reduced EF 15%, he did not recommend further cardiac intervention at this point. Patient was on started Norepinephrine, Dopamine, and Vasopressin for pressor support and an arterial line was placed. Repeat ABG revealed pH 7.07, pCO2 60, PO2 143, bicarbonate 17, and O2 sat 98%. Patient started developing acute pulmonary edema due to large volume of fluid resuscitation. He was started on Albumin and given 1 dose of Lasix. Patient's sons and daughters were brought to the ICU to patient's bedside and updated multiple times throughout the course of the night regarding patient's poor prognosis, severity of illness, and high likelihood and deteriorating despite appropriate medical interventions. Next of kin, patient's eldest son, expressed desire to continue full resuscitation measures including CPR if needed. Past Med Surg Social Fam HX - Past Medical History Medical history: atrial fibrillation, COPD, myocardial infarction, TIA Psychiatric history: no psych history - Past Surgical History Surgical History: coronary bypass (CABG), pacemaker/AICD (subsequent removal due to inf in Jul 2015) Additional surgical history: hernia repair - Social History Smoking Status: Former smoker Smokeless Tobacco Status: No Alcohol use: none Drug use: none - Family History Father Family Member Ethnicity: Non- Living Status: Hx Family Cardiac Disorders: Yes Medications and Allergies Carvedilol [Coreg] 12.5 mg PO BID 02/10/16 [History] Furosemide [Lasix] 80 mg PO DAILY 02/10/16 [History] Lisinopril [Zestril] 20 mg PO DAILY 02/10/16 [History] Pantoprazole Sodium [Protonix] 40 mg PO DAILY 02/10/16 [History] Rivaroxaban [Xarelto] 20 mg PO DAILY 02/10/16 [History] Spironolactone [Aldactone] 12.5 mg PO DAILY 02/10/16 [History] Ipratropium/Albuterol Neb [Duoneb] 3 ml IH Q6HR 30 Days 02/14/16 [Rx] Isosorbide MONOnitrate (24 HR) [Imdur] 30 mg PO DAILY 30 Days tab.er.24h [Rx] Albuterol Sulfate [Albuterol Inhaler] 2 puff IH Q4HR PRN 07/08/18 [History] Allopurinol [Zyloprim 100 MG] 100 mg PO DAILY 07/08/18 [History] Ferrous Sulfate [Iron] 325 - 650 mg PO DAILY 07/08/18 [History] 3 Allergy/AdvReac Type Severity Reaction Status Date / Time No Known Allergies Allergy Verified 07/08/18 17:28 ROS unobtainable: due to endotracheal tube All Systems: The remainder of the systems were reviewed and are negative Physical Examination Vital Signs: Vital Signs, Last 4 Hours Pulse Resp BP Pulse Ox 07/08/18 19:16 34 91 07/08/18 18:53 104 29 124/56 94 07/08/18 18:48 96 36 110/61 93 07/08/18 18:33 105 37 113/103 93 07/08/18 18:22 104 29 115/77 90 General appearance: comatose (Intubated, no response to verbal or noxious stimuli off sedation) Eyes: nonicteric (Pinpoint pupils, sluggish) ENT: oropharynx dry (Intubated) Effort: very labored (Intubated) Auscultation: bilateral: rales Cardiovascular: other (Tachycardia, decreased breath sounds) Gastrointestinal: hypoactive bowel sounds, non-tender, non-distended (Inguinal hernia) Integumentary: other (Cyanotic, pale, dry) Extremities: no edema, cool Musculoskeletal: no deformities Gait: normal posture unable to assess due to mental status Ventilator Settings Ventilator Settings: Ventilator Settings, Last 8 Hours Ventilator Tidal Volume 550 Setting Ventilator Tidal Volume 550 Setting Ventilator Tidal Volume 550 Setting Ventilator Tidal Volume 550 Setting Ventilator Tidal Volume 550 Setting Ventilator Tidal Volume 550 Setting Ventilator Tidal Volume 550 Setting Ventilator Tidal Volume 550 Setting Ventilator Tidal Volume 520 Setting Ventilator Tidal Volume 550 Setting Ventilator Tidal Volume 520 Setting Ventilator Tidal Volume 550 Setting Ventilator Tidal Volume 550 Setting Ventilator Tidal Volume 550 Setting Ventilator Respiratory Rate 28 Setting Ventilator Respiratory Rate 28 Setting Ventilator Respiratory Rate 28 Setting Ventilator Respiratory Rate 28 Setting Ventilator Respiratory Rate 28 Setting Ventilator Respiratory Rate 28 Setting Ventilator Respiratory Rate 28 Setting Ventilator Respiratory Rate 28 Setting Ventilator Respiratory Rate 28 Setting Ventilator Respiratory Rate 24 Setting Ventilator Respiratory Rate 28 Setting Ventilator Respiratory Rate 24 Setting Ventilator Respiratory Rate 28 Setting Ventilator Respiratory Rate 24 Setting Actual Respiratory Rate 29 Actual Respiratory Rate 30 Actual Respiratory Rate 29 Actual Respiratory Rate 29 Actual Respiratory Rate 34 Actual Respiratory Rate 31 Actual Respiratory Rate 30 Actual Respiratory Rate 28 Actual Respiratory Rate 30 Actual Respiratory Rate 30 Actual Respiratory Rate 31 Positive End Expiratory 10 Pressure Positive End Expiratory 10 Pressure Positive End Expiratory 10 Pressure Positive End Expiratory 10 Pressure Positive End Expiratory 10 Pressure Positive End Expiratory 10 Pressure Positive End Expiratory 10 Pressure Positive End Expiratory 10 Pressure Positive End Expiratory 5 Pressure Positive End Expiratory 5 Pressure Positive End Expiratory 5 Pressure Positive End Expiratory 5 Pressure Positive End Expiratory 10 Pressure Positive End Expiratory 10 Pressure Peak Inspiratory Airway 31 Pressure Peak Inspiratory Airway 35 Pressure Peak Inspiratory Airway 35 Pressure Peak Inspiratory Airway 36 Pressure Peak Inspiratory Airway 38 Pressure Peak Inspiratory Airway 37 Pressure Peak Inspiratory Airway 42 Pressure Peak Inspiratory Airway 45 Pressure Peak Inspiratory Airway 40 Pressure Peak Inspiratory Airway 31 Pressure Peak Inspiratory Airway 27 Pressure Results - Laboratory Findings CBC and BMP: 07/09/18 02:30 07/09/18 02:30 PT/INR, D-dimer PT 29.5 Seconds (9.4-12.1) H 07/08/18 15:05 Abnormal lab findings: Abnormal lab results WBC 24.9 K/mcL (4.3-11.1) H 07/08/18 15:05 RBC 3.13 M/mcL (4.19-5.50) L 07/08/18 15:05 Hgb 10.4 g/dL (12.9-16.9) L 07/08/18 15:05 Hct 31.2 % (37.5-50.1) L 07/08/18 15:05 Neutrophils # 22.3 K/mcL (1.6-8.9) H 07/08/18 15:05 Lymphocytes # 0.4 K/mcL (0.6-4.6) L 07/08/18 15:05 Monocytes # 1.6 K/mcL (0.0-1.3) H 07/08/18 15:05 PT 29.5 Seconds (9.4-12.1) H 07/08/18 15:05 Chloride 111 mEq/L (98-107) H 07/08/18 15:05 Carbon Dioxide 15 mEq/L (23-29) L 07/08/18 15:05 BUN 103 mg/dL (8-23) H 07/08/18 15:05 Creatinine 3.23 mg/dL (0.70-1.30) H 07/08/18 15:05 Est GFR ( Amer) 23 (> 60) L 07/08/18 15:05 Est GFR (Non-Af Amer) 19 (> 60) L 07/08/18 15:05 BUN/Creatinine Ratio 32 (6-26) H 07/08/18 15:05 Glucose 127 mg/dL (70-105) H 07/08/18 15:05 Calculated Osmolality 316 (280-300) H 07/08/18 15:05 Stool Occult Bld Scrn Positive (Negative) A 07/08/18 15:17 - Diagnostic Findings Chest x-ray: report reviewed, image reviewed Additional studies: EKG reviewed reveals ST elevation in inferior leads II, aVF 07/08/18 07/08/18 07/09/18 21:30 22:33 00:37 ABG pH 6.77 L* 7.07 L* D 7.10 L* ABG pCO2 88 H* 60 H D 64 H ABG pO2 106 H 143 H 63 L D ABG HCO3 13 L 17 L 20 L ABG Total CO2 15 L 19 L 22 ABG O2 Saturation 88 L 98 82 L ABG Base Excess -22 L -12 L -10 L 07/09/18 04:46 ABG pH 7.31 L D ABG pCO2 42 D ABG pO2 92 ABG HCO3 21 ABG Total CO2 23 ABG O2 Saturation 96 ABG Base Excess -5 L - Clinical Findings Intake & Output: Intake & Output 07/08/18 07/08/18 07/08/18 07:59 15:59 23:59 Intake Total 250 / 1270 Balance 250 / 1270 Consult Discharge Plan - Plan Referrals: Juan Jose Willingham, [Primary Care Provider] - <Rosa Tony S - Last Filed: 07/09/18 19:01> Date of Encounter: 07/09/18 All Systems: The remainder of the systems were reviewed and are negative Physical Examination Vital Signs: Vital Signs, Last 4 Hours Pulse Resp BP Pulse Ox 07/09/18 15:52 30 82/48 87 07/09/18 15:00 115 30 73/45 87 07/09/18 14:09 27 88 Ventilator Settings Ventilator Settings: Ventilator Settings, Last 8 Hours Ventilator Tidal Volume 600 Setting Ventilator Tidal Volume 600 Setting Ventilator Tidal Volume 600 Setting Ventilator Tidal Volume 600 Setting Ventilator Tidal Volume 600 Setting Ventilator Tidal Volume 600 Setting Ventilator Tidal Volume 600 Setting Ventilator Tidal Volume 600 Setting Ventilator Tidal Volume 600 Setting Ventilator Tidal Volume 600 Setting Ventilator Respiratory Rate 30 Setting Ventilator Respiratory Rate 30 Setting Ventilator Respiratory Rate 30 Setting Ventilator Respiratory Rate 30 Setting Ventilator Respiratory Rate 20 Setting Ventilator Respiratory Rate 28 Setting Ventilator Respiratory Rate 28 Setting Ventilator Respiratory Rate 28 Setting Ventilator Respiratory Rate 28 Setting Ventilator Respiratory Rate 28 Setting Actual Respiratory Rate 30 Actual Respiratory Rate 27 Actual Respiratory Rate 33 Positive End Expiratory 18 Pressure Positive End Expiratory 18 Pressure Positive End Expiratory 18 Pressure Positive End Expiratory 18 Pressure Positive End Expiratory 18 Pressure Positive End Expiratory 12 Pressure Positive End Expiratory 12 Pressure Positive End Expiratory 12 Pressure Positive End Expiratory 12 Pressure Positive End Expiratory 12 Pressure Peak Inspiratory Airway 47 Pressure Peak Inspiratory Airway 45 Pressure Peak Inspiratory Airway 45 Pressure Peak Inspiratory Airway 41 Pressure Peak Inspiratory Airway 44 Pressure Peak Inspiratory Airway 43 Pressure Peak Inspiratory Airway 44 Pressure Peak Inspiratory Airway 45 Pressure Results - Laboratory Findings CBC and BMP: 07/09/18 15:12 07/09/18 16:30 ABG ABG pH 7.22 pH Units (7.32-7.45) L 07/09/18 17:33 ABG pCO2 41 mmHg (35-45) 07/09/18 17:33 ABG pO2 48 mmHg (85-104) L* 07/09/18 17:33 ABG O2 Saturation 75 % (95-98) L 07/09/18 17:33 PT/INR, D-dimer PT 28.5 Seconds (9.4-12.1) H 07/09/18 02:49 Abnormal lab findings: Abnormal lab results WBC 23.0 K/mcL (4.3-11.1) H 07/09/18 15:12 RBC 2.44 M/mcL (4.19-5.50) L 07/09/18 15:12 Hgb 8.0 g/dL (12.9-16.9) L 07/09/18 15:12 Hct 24.8 % (37.5-50.1) L 07/09/18 15:12 MCV 101.6 fL (83.0-100.0) H 07/09/18 15:12 RDW 14.6 % (11.5-14.5) H 07/09/18 15:12 Neutrophils # 19.8 K/mcL (1.6-8.9) H 07/09/18 15:12 Monocytes # 1.4 K/mcL (0.0-1.3) H 07/09/18 15:12 Nucleated RBCs/100 WBC 0.5 /100 WBC (0) H 07/09/18 15:12 PT 28.5 Seconds (9.4-12.1) H 07/09/18 02:49 ABG pH 7.22 pH Units (7.32-7.45) L 07/09/18 17:33 ABG pO2 48 mmHg (85-104) L* 07/09/18 17:33 ABG HCO3 17 mEq/L (21-27) L 07/09/18 17:33 ABG Total CO2 18 mEq/L (20-26) L 07/09/18 17:33 ABG O2 Saturation 75 % (95-98) L 07/09/18 17:33 ABG Base Excess -10 mEq/L (-2 to 3) L 07/09/18 17:33 VBG pH 7.27 pH Units (7.32-7.42) L 07/09/18 11:32 VBG pCO2 40 mmHg (41-51) L 07/09/18 11:32 VBG HCO3 19 mEq/L (21-27) L 07/09/18 11:32 Carboxyhemoglobin 5.1 % (0-5) H 07/09/18 17:49 Chloride 108 mEq/L (98-107) H 07/09/18 02:30 Carbon Dioxide 20 mEq/L (23-29) L 07/09/18 02:30 BUN 83 mg/dL (8-23) H 07/09/18 02:30 Creatinine 2.64 mg/dL (0.70-1.30) H 07/09/18 02:30 Est GFR ( Amer) 29 (> 60) L 07/09/18 02:30 Est GFR (Non-Af Amer) 24 (> 60) L 07/09/18 02:30 BUN/Creatinine Ratio 31 (6-26) H 07/09/18 02:30 Glucose 162 mg/dL (70-105) H 07/09/18 02:30 Calculated Osmolality 315 (280-300) H 07/09/18 02:30 Lactic Acid 6.1 mmol/L (0.5-2.2) H* 07/09/18 13:00 Calcium 8.4 mg/dL (8.6-10.3) L 07/09/18 02:30 Venous Ioniz Calcium 1.03 mmol/L (1.15-1.35) L 07/09/18 16:09 Phosphorus 5.6 mg/dL (2.7-4.5) H 07/09/18 15:11 Magnesium 1.5 mg/dL (1.6-2.6) L 07/09/18 15:11 Total Bilirubin 1.5 mg/dL (0.3-1.0) H 07/09/18 15:11 Direct Bilirubin 1.2 mg/dL (0.0-0.2) H 07/09/18 15:11 AST 508 Units/L (13-39) H 07/09/18 15:11 ALT 287 Units/L (7-52) H 07/09/18 15:11 B-Natriuretic Peptide 2687 pg/mL (Less than 100) H 07/09/18 02:36 Serum Total Protein 4.3 g/dL (6.4-8.9) L 07/09/18 15:11 Albumin 2.6 g/dL (3.5-5.7) L 07/09/18 15:11 Globulin 1.7 g/dL (2.4-3.5) L 07/09/18 15:11 Stool Occult Bld Scrn Positive (Negative) A 07/08/18 15:17 Vancomycin Trough 29 mcg/mL (5-10) H 07/09/18 07:00 - Clinical Findings Intake & Output: Intake & Output 0907/09/18 07/09/18 07:59 15:59 23:59 Intake Total 3140.4 / 3140.4 2327.3 / 2327.3 1165.6 / 1165.6 Output Total 175 / 175 230 / 230 Balance 2965.4 / 2965.4 2097.3 / 2097.3 1165.6 / 1165.6 - Attending Attestation I saw and evaluated this patient and my medical decision-making was reviewed with the Resident Physician. I agree with the documented findings, disposition and treatment plan as described except to the extent set forth below. We independently had [id number] contact with the patient I spent 50 minutes of Critical Care time with this patient. It involved decision making of high complexity to assess, manipulate, and support vital organ system failure and/or to prevent further life threatening deterioration of the patient's condition. The time involved in the performance of separately reportable procedures was not counted toward critical care time. Patient seen and examined at bedside Labs, radiology, chart personally reviewed. Management was reviewed during multidisciplinary critical care rounds. PERINATAL EDUCATOR: Patient completely comatose not following any commands patient had pulseless electrical activity cardiac arrest cannot be initiated hypothermic protocol because of bleeding as bleeding is a contraindication for hypothermic protocol. Suspect anoxic neurological injury. Pulm: Has left-sided pneumonia with severe V/Q mismatch with more of a shunt physiology more of physiologic shunt DUE TO INTRAPULMONARY CAUSES DUE TO AN ECHO DID NOT SHOW ANY SHUNT ACTIVITY WITHIN THE RIGHT AND LEFT. Patient has refractory oxygenation the right ventricle systolic dysfunction as evidenced by global hypokinesis both in the right ventricle and the left ventricle causing poor circulation also contributing to the refractory oxygenation and do not think pruning the patient is going to benefit and also multiple vasopressor therapy is a contraindication to prone ventilation. Cards: Patient has previous history of ischemic cardiomyopathy EF of 15% now after the cardiac arrest patient right ventricle was also feeling in the EF is 15% with global hypokinesis and both left ventricle and right ventricle no intervention will benefit the recovery of this cardiogenic shock patient on multiple vasopressors I suspect patient will not survive the next 12 hours. FEN-GI: Patient will be nothing by mouth GI prophylaxis Renal: Acute kidney injury was likely due to ATN output and labs reviewed ID: As pneumonia most likely septic shock also contributing on broad-spectrum antibiotics. Heme/Onc: Abscess reviewed coagulopathy corrected. Endo: Glucose Monitored Integ/MSK: Skin Care per routine ICU Nursing Protocol to prevent ulcers. Lines: All lines examined without evidence of infection : Dispo: Criticaly ill high chance of dying within the next 12 hours. CODE: Had Extensive discussion with the family persistent with full code for now told the family that if he goes for cardiac arrest he will not survive resuscitation
[2018-07-08] MEDS ORDERED: Ondansetron 4 MG/2 ML VIAL IVP PRN (20:00)
[2018-07-08] MEDS: Dexmedetomidine HCl 400 MCG/100 ML MLS IVC SCH (20:04)
[2018-07-08] MEDS ORDERED: *HR* Etomidate 40 MG/20 ML VIAL IVP ONE (20:08)
[2018-07-08] MEDS ORDERED: *HR* Midazolam HCl 5 MG/5 ML VIAL IVP ONE ×2 (20:09→20:28)
[2018-07-08] MEDS ORDERED: Artificial Tears SOLN 15 ML BOTTLE BOTH EYES PRN (20:10)
[2018-07-08] MEDS ORDERED: *HR* FentaNYL (PF) 100 MCG/2 ML VIAL IVP ONE (20:27)
[2018-07-08] MEDS ORDERED: *HR* Midazolam HCl 2 MG/2 ML VIAL IVP ONE (20:28)
--- NOTE | 2018-07-08 20:32 | Emergency Department Note ---
Disposition Clinical Impression: GEM (acute kidney injury), Epistaxis Pneumonia Qualifiers: Pneumonia type: due to unspecified organism Laterality: left Lung location: upper lobe of lung Qualified Code(s): J18.1 - Lobar pneumonia, unspecified organism GI bleeding Qualifiers: GI bleed type/associated pathology: unspecified gastrointestinal hemorrhage type Qualified Code(s): K92.2 - Gastrointestinal hemorrhage, unspecified Sepsis Qualifiers: Sepsis type: sepsis due to unspecified organism Qualified Code(s): A41.9 - Sepsis, unspecified organism Disposition: Admitted As Inpatient Condition: Good General Adult HPI - General Chief complaint: ED General Medical Stated complaint: Low BP, Nose bleed Time Seen by Provider: 07/08/18 15:01 Source: patient, EMS Limitations: no limitations Nursing Notes Reviewed: Yes Vital Signs Reviewed: Yes - History of Present Illness Pain Scale: 0 - Related Data Home Medications Medication Instructions Recorded Confirmed Carvedilol [Coreg] 12.5 mg PO BID 02/10/16 07/08/18 Furosemide [Lasix] 80 mg PO DAILY 02/10/16 07/08/18 Lisinopril [Zestril] 20 mg PO DAILY 02/10/16 07/08/18 Pantoprazole Sodium [Protonix] 40 mg PO DAILY 02/10/16 07/08/18 Rivaroxaban [Xarelto] 20 mg PO DAILY 02/10/16 07/08/18 Spironolactone [Aldactone] 12.5 mg PO DAILY 02/10/16 07/08/18 Albuterol Sulfate [Albuterol 2 puff IH Q4HR PRN 07/08/18 07/08/18 Inhaler] Allopurinol [Zyloprim 100 MG] 100 mg PO DAILY 07/08/18 07/08/18 Ferrous Sulfate [Iron] 325 - 650 mg PO DAILY 07/08/18 07/08/18 Previous Rx's Medication Instructions Recorded Ipratropium/Albuterol Neb [Duoneb] 3 ml IH Q6HR 30 Days 02/14/16 Isosorbide MONOnitrate (24 HR) 30 mg PO DAILY 30 Days tab.er.24h 02/14/16 [Imdur] Allergies Allergy/AdvReac Type Severity Reaction Status Date / Time No Known Allergies Allergy Verified 07/08/18 17:28 Constitutional: Denies: fever, chills Cardiovascular: Denies: chest pain, syncope Respiratory: Denies: cough, dyspnea Gastrointestinal: Reports: abdominal pain (Generalized), vomiting (One episode this morning). Denies: nausea, diarrhea, hematemesis, melena, hematochezia Genitourinary: Denies: urgency, dysuria Musculoskeletal: Denies: back pain, neck pain Hematological/Lymphatic: Reports: easy bleeding, other (Epistaxis since this morning. Right ear bleeding for 4 days.) Past Medical History - Past Medical History Medical history: Reports: atrial fibrillation, COPD, myocardial infarction, TIA Surgical history: Reports: coronary bypass (CABG), pacemaker/AICD (subsequent removal due to inf in Jul 2015) Psychiatric history: Reports: no psych history - Social History Smoking Status: Former smoker Smokeless Tobacco Status: No Alcohol use: Reports: none Drug use: Reports: none Physical Exam - General Limitations: no limitations General appearance: alert, in no apparent distress Course Course Narrative: I was called to bedside because patient's respiratory status had declined. Patient was placed on BiPAP however failed this trial. His oxygen saturation was decreasing and patient's mentation was decreasing as well. We decided to emergently intubate the patient. Patient was anterior. No complications. I do breast sounds bilaterally. Good oxygen saturation oximetry saturation Percent. Preintubation Blood Pressure Was in the 100 Systolic. As We Are Attempting to Secure the Tube the Patient Lost Pulses. CPR Was Started. Patient Was Given 2. Rounds of Epinephrine and Amp of Calcium As Well As an Amp of D50. After 3 Rounds of Compressions the Patient Regained Pulses. He Was in PEA throughout the Arrest. A Right IJ Was Then Placed. Patient Had a Blood Pressure in the 90s after Arrest. Patient Is Being Sent to the ICU at This Time. Vital Signs Temperature 97.8 F 07/08/18 15:02 Pulse Rate 86 07/08/18 15:02 Respiratory Rate 15 07/08/18 15:02 Blood Pressure 79/49 07/08/18 15:02 O2 Sat by Pulse Oximetry 100 07/08/18 15:02 Temperature 97.8 F 07/08/18 15:02 Pulse Rate 79 07/08/18 20:23 Respiratory Rate 14 07/08/18 20:23 Blood Pressure 95/50 07/08/18 20:23 O2 Sat by Pulse Oximetry 94 07/08/18 20:23 Oxygen Delivery Oxygen Delivery Ventilator Procedures - Central Line Placement Right IJ Central Line Inserted*: Yes Central Line Catheter Replacement*: Yes Central Line Insertion: emergent Patient Placed on Monitor/Pulse Ox: Yes During the Procedure: clinician is wearing sterile gloves, cap, mask,& gown during insertion, sterile field and sterile technique are maintained, patient's face is covered with drape or mask and wearing a cap Central Line Prep: Chlorhexidine scrub Prep the Procedure Site: apply chloraprep to the skin using a back and forth scrubbing motion, apply chloraprep for 30 seconds (upper body), 1-2 min ( femoral sites), allow prep to dry, drape the patient with a full body drape Post Procedure: sutured in place, good blood return, all ports aspirated, flushed, capped, sterile dressing applied, guide wire removed and visualized Post Procedure X-Ray: tip of catheter in good position, no pneumothorax seen Patient Tolerated Procedure: well Date: 07/08/18 Time: 20:32 - Intubation Time out performed: No sedative: Etomidate Mg Given: 40 paralytic: Succinylcholine Mg Given: 100 Laryngoscope: Janeen ET Tube Size: Oral ET Tube Uncuffed: Yes Tube Secured Depth (cm): 20 Tube Secured Location: lips Tube Placement Confirmation: visualized tube passing through cords, equal breath sounds bilaterally, no breath sounds over epigastrium, confirmation by capnometry Patient Tolerated Procedure: well Intubation Complications: none Medical Decision Making - Lab Data Result diagrams: 07/08/18 15:05 07/08/18 15:05 Lab Results 07/08/18 07/08/18 07/08/18 Range/Units 15:05 15:05 15:05 WBC 24.9 H (4.3-11.1) K/mcL RBC 3.13 L (4.19-5.50) M/mcL Hgb 10.4 L (12.9-16.9) g/dL Hct 31.2 L (37.5-50.1) % MCV 99.7 (83.0-100.0) fL MCH 33.2 (28.0-33.3) pg MCHC 33.3 (31.6-35.5) g/dL RDW 14.5 (11.5-14.5) % Plt Count 254 (140-400) K/mcL MPV 11.0 (9.4-12.4) fL Immature Gran % 2.5 (0-4) % Seg Neutrophils % 89.6 % Lymphocytes % 1.4 % Monocytes % 6.3 % Eosinophils % 0.1 % Basophils % 0.1 % Neutrophils # 22.3 H (1.6-8.9) K/mcL Lymphocytes # 0.4 L (0.6-4.6) K/mcL Monocytes # 1.6 H (0.0-1.3) K/mcL Eosinophils # 0.0 (0.0-0.6) K/mcL Basophils # 0.0 (0.0-0.2) K/mcL Platelet Estimate Normal (Normal) PT 29.5 H (9.4-12.1) Seconds INR 2.6 Sodium 136 (136-145) mEq/L Potassium 4.4 (3.5-5.1) mEq/L Chloride 111 H (98-107) mEq/L Carbon Dioxide 15 L (23-29) mEq/L BUN 103 H (8-23) mg/dL Creatinine 3.23 H (0.70-1.30) mg/dL Est GFR ( Amer) 23 L (> 60) Est GFR (Non-Af Amer) 19 L (> 60) BUN/Creatinine Ratio 32 H (6-26) Glucose 127 H (70-105) mg/dL Calculated Osmolality 316 H (280-300) Lactic Acid (0.5-2.2) mmol/L Calcium 8.6 (8.6-10.3) mg/dL Phosphorus (2.7-4.5) mg/dL Magnesium (1.6-2.6) mg/dL Troponin I (< 0.04) ng/mL Urine Color (Yellow) Urine Clarity (Clear) Urine pH (5.0-8.0) pH Units Ur Specific [place] (1.010-1.025) Urine Protein (Neg-Trace) mg/dL Urine Glucose (UA) (Normal) mg/dL Urine Ketones (Negative) mg/dL Urine Blood (Negative) Urine Nitrite (Negative) Urine Bilirubin (Negative) Urine Urobilinogen (Normal) mg/dL Ur Leukocyte Esterase (Negative) Stool Occult Bld Scrn (Negative) Blood Type Antibody Screen 07/08/18 07/08/1807/08/18 Range/Units 15:05 15:17 16:26 WBC (4.3-11.1) K/mcL RBC (4.19-5.50) M/mcL Hgb (12.9-16.9) g/dL Hct (37.5-50.1) % MCV (83.0-100.0) fL MCH (28.0-33.3) pg MCHC (31.6-35.5) g/dL RDW (11.5-14.5) % Plt Count (140-400) K/mcL MPV (9.4-12.4) fL Immature Gran % (0-4) % Seg Neutrophils % % Lymphocytes % % Monocytes % % Eosinophils % % Basophils % % Neutrophils # (1.6-8.9) K/mcL Lymphocytes # (0.6-4.6) K/mcL Monocytes # (0.0-1.3) K/mcL Eosinophils # (0.0-0.6) K/mcL Basophils # (0.0-0.2) K/mcL Platelet Estimate (Normal) PT (9.4-12.1) Seconds INR Sodium (136-145) mEq/L Potassium (3.5-5.1) mEq/L Chloride (98-107) mEq/L Carbon Dioxide (23-29) mEq/L BUN (8-23) mg/dL Creatinine (0.70-1.30) mg/dL Est GFR ( Amer) (> 60) Est GFR (Non-Af Amer) (> 60) BUN/Creatinine Ratio (6-26) Glucose (70-105) mg/dL Calculated Osmolality (280-300) Lactic Acid (0.5-2.2) mmol/L Calcium (8.6-10.3) mg/dL Phosphorus (2.7-4.5) mg/dL Magnesium (1.6-2.6) mg/dL Troponin I (< 0.04) ng/mL Urine Color Yellow (Yellow) Urine Clarity Clear (Clear) Urine pH 5.5 (5.0-8.0) pH Units Ur Specific [place] 1.013 (1.010-1.025) Urine Protein Negative (Neg-Trace) mg/dL Urine Glucose (UA) Normal (Normal) mg/dL Urine Ketones Negative (Negative) mg/dL Urine Blood Negative (Negative) Urine Nitrite Negative (Negative) Urine Bilirubin Negative (Negative) Urine Urobilinogen Normal (Normal) mg/dL Ur Leukocyte Esterase Negative (Negative) Stool Occult Bld Scrn Positive A (Negative) Blood Type O POSITIVE Antibody Screen NEGATIVE 07/08/18 07/08/18 07/08/18 Range/Units 16:49 16:49 16:49 WBC (4.3-11.1) K/mcL RBC (4.19-5.50) M/mcL Hgb (12.9-16.9) g/dL Hct (37.5-50.1) % MCV (83.0-100.0) fL MCH (28.0-33.3) pg MCHC (31.6-35.5) g/dL RDW (11.5-14.5) % Plt Count (140-400) K/mcL MPV (9.4-12.4) fL Immature Gran % (0-4) % Seg Neutrophils % % Lymphocytes % % Monocytes % % Eosinophils % % Basophils % % Neutrophils # (1.6-8.9) K/mcL Lymphocytes # (0.6-4.6) K/mcL Monocytes # (0.0-1.3) K/mcL Eosinophils # (0.0-0.6) K/mcL Basophils # (0.0-0.2) K/mcL Platelet Estimate (Normal) PT (9.4-12.1) Seconds INR Sodium (136-145) mEq/L Potassium (3.5-5.1) mEq/L Chloride (98-107) mEq/L Carbon Dioxide (23-29) mEq/L BUN (8-23) mg/dL Creatinine (0.70-1.30) mg/dL Est GFR ( Amer) (> 60) Est GFR (Non-Af Amer) (> 60) BUN/Creatinine Ratio (6-26) Glucose (70-105) mg/dL Calculated Osmolality (280-300) Lactic Acid 1.9 (0.5-2.2) mmol/L Calcium (8.6-10.3) mg/dL Phosphorus 3.9 (2.7-4.5) mg/dL Magnesium 1.9 (1.6-2.6) mg/dL Troponin I 0.03 (< 0.04) ng/mL Urine Color (Yellow) Urine Clarity (Clear) Urine pH (5.0-8.0) pH Units Ur Specific [place] (1.010-1.025) Urine Protein (Neg-Trace) mg/dL Urine Glucose (UA) (Normal) mg/dL Urine Ketones (Negative) mg/dL Urine Blood (Negative) Urine Nitrite (Negative) Urine Bilirubin (Negative) Urine Urobilinogen (Normal) mg/dL Ur Leukocyte Esterase (Negative) Stool Occult Bld Scrn (Negative) Blood Type Antibody Screen
[2018-07-08] MEDS: Norepinephrine 4 MG in D5% in Water 250 ML IVC SCH ×2 (20:51→23:09)
[2018-07-08 20:57] LABS: Prothrombin Time 33.3 Seconds (9.4-12.1)
[2018-07-08] MEDS: Ipratropium/Albuterol Neb 3 ML IH SCH ×2 (21:10→23:36)
[2018-07-08 21:13] LABS: Albumin 2.4 g/dL (3.5-5.7); Albumin/Globulin Ratio 1.1 (1.1-2.2); Bilirubin,Total 0.7 mg/dL (0.3-1.0); Calcium 9.1 mg/dL (8.6-10.3); Globulin 2.1 g/dL (2.4-3.5); Magnesium 1.9 mg/dL (1.6-2.6); Phosphorous 5.6 mg/dL (2.7-4.5); Potassium 5.7 mEq/L (3.5-5.1); Total Protein 4.5 g/dL (6.4-8.9)
[2018-07-08] MEDS ORDERED: *HR* Dextrose 50 % in Water (Syg) 50 ML SYRINGE IVP PRN (21:30)
[2018-07-08] MEDS ORDERED: D5% in Water 1,000 ML IVC PRN (21:30)
[2018-07-08] MEDS ORDERED: Dextrose Gel 15 GM/37.5 ML TUBE PO PRN ×2 (21:30)
[2018-07-08 21:35] LABS: ABG Base Excess -22 mEq/L (-2 to 3); ABG HCO3 13 mEq/L (21-27); ABG Oxygen Saturation 88 % (95-98); ABG PCO2 88 mmHg (35-45); ABG PH 6.77 pH Units (7.32-7.45); ABG PO2 106 mmHg (85-104); ABG TCO2 15 mEq/L (20-26); Blood Gas Modality ASSIST CONTROL; Blood Gas PEEP 10 cm H2O; Blood Gas Respiration Rate 14; Blood Gas VT 500 cc
[2018-07-08 21:51] LABS: Basophils % 0.2 %; Eosinophils # 0.1 K/mcL (0.0-0.6); Eosinophils % 0.4 %; Hematocrit 29.2 % (37.5-50.1); Hemoglobin 9.3 g/dL (12.9-16.9); Immature Granulocytes % 0.7 % (0-4); Lymphocytes # 0.8 K/mcL (0.6-4.6); Lymphocytes % 3.7 %; Mean Corpuscular HGB Conc 31.8 g/dL (31.6-35.5); Mean Corpuscular Hemoglobin 33.6 pg (28.0-33.3); Mean Corpuscular Volume 105.4 fL (83.0-100.0); Mean Platelet Volume 10.5 fL (9.4-12.4); Monocytes # 0.5 K/mcL (0.0-1.3); Monocytes % 2.2 %; Neutrophils # 20.6 K/mcL (1.6-8.9); Nucleated Red Blood Cells 0.1 /100 WBC (0); Platelet Count 288 K/mcL (140-400); Red Blood Count 2.77 M/mcL (4.19-5.50); Red Cell Distribution Width 14.6 % (11.5-14.5); Segmented Neutrophils % 92.8 %
[2018-07-08 21:53] LABS: Calcium 8.3 mg/dL (8.6-10.3); Potassium 5.1 mEq/L (3.5-5.1)
[2018-07-08] MEDS: Pantoprazole 40 MG VIAL IVP SCH (22:08)
[2018-07-08 22:14] LABS: Platelet Estimate Normal (Normal)
[2018-07-08] MEDS: Sodium Bicarbonate 150 MEQ in D5% in Water 1,000 ML IVC SCH (22:21)
[2018-07-08 22:25] LABS: Estimated Average Glucose 114 mg/dl; Hemoglobin A1C 5.6 %
[2018-07-08 22:38] LABS: ABG Base Excess -12 mEq/L (-2 to 3); ABG HCO3 17 mEq/L (21-27); ABG Oxygen Saturation 98 % (95-98); ABG PCO2 60 mmHg (35-45); ABG PH 7.07 pH Units (7.32-7.45); ABG PO2 143 mmHg (85-104); ABG TCO2 19 mEq/L (20-26); Blood Gas Modality ASSIST CONTROL; Blood Gas PEEP 10 cm H2O; Blood Gas Respiration Rate 28; Blood Gas VT 550 cc
[2018-07-08] MEDS ORDERED: Calcium Gluconate 2,000 MG in 0.9 % Sodium Chloride 100 ML IVPB ONE (22:48)
--- NOTE | 2018-07-08 22:53 | Procedure Note ---
Date of procedure: 07/08/18 Pre-op diagnosis: Septic shock Post-op diagnosis: same Procedure: A time-out was completed verifying correct patient, procedure, site, positioning , and special equipment. Right pedal pulses were checked for adequate perfusion. The patients right groin was prepped and draped in sterile fashion. 1 % Lidocaine was used to anesthetize the area. A 20G [place] arterial line was introduced into the femoral artery. The catheter was threaded over the guide wire and the needle was removed with appropriate pulsatile blood return. The catheter was then sutured in place to the skin and a sterile dressing applied. Perfusion to the extremity distal to the point of catheter insertion was checked and found to be adequate. Attending, Dr. Powell was present for the entire procedure. The patient tolerated the procedure well and there were no complications. Anesthesia: local Surgeon: Darrel Fernandez Was there an personal care assistant present: Yes Atomic Welder: Reena Powell Estimated blood loss (cc): 3 Specimen: ABG Pathology: none sent Condition: critical Disposition: ICU
[2018-07-08] MEDS ORDERED: 0.9 % Sodium Chloride 500 ML ONE (23:11)
[2018-07-08] MEDS: Vasopressin 40 UNIT in D5% in Water 100 ML IV SCH (23:33)
[2018-07-08] MEDS ORDERED: Norepinephrine 8 MG in D5% in Water 500 ML IVC SCH (23:45)
[2018-07-09] MEDS: Chlorhexidine Rinse 15 ML MOUTHWASH MM SCH ×3 (00:02→20:14)
[2018-07-09] MEDS ORDERED: Albumin 25% 25gram/100mL 25 GM/100 ML IV.SOLN IVPB ONE ×2 (00:11→05:53)
[2018-07-09] MEDS ORDERED: Albumin 25% 25gram/100mL 25 GM/100 ML IV.SOLN ONE ×2 (00:11→06:02)
[2018-07-09 00:42] LABS: ABG Base Excess -10 mEq/L (-2 to 3); ABG HCO3 20 mEq/L (21-27); ABG Oxygen Saturation 82 % (95-98); ABG PCO2 64 mmHg (35-45); ABG PO2 63 mmHg (85-104); ABG TCO2 22 mEq/L (20-26); Blood Gas Modality ASSIST CONTROL; Blood Gas PEEP 5 cm H2O; Blood Gas Respiration Rate 28; Blood Gas VT 520 cc
[2018-07-09] MEDS ORDERED: Furosemide 40 MG/4 ML VIAL IVP ONE ×2 (00:45→06:30)
[2018-07-09] MEDS: EPINEPHrine 1 MG in D5% in Water 250 ML IVC SCH ×6 (00:47→16:07)
[2018-07-09] MEDS: Norepinephrine 8 MG in D5% in Water 250 ML IVC SCH ×4 (01:13→20:14)
[2018-07-09] MEDS: Artificial Tears SOLN 15 ML BOTTLE BOTH EYES SCH ×6 (01:16→20:34)
[2018-07-09] MEDS: Insulin LISPRO 300 UNITS/3 ML VIAL SQ SCH ×6 (01:17→22:51)
[2018-07-09 02:49] LABS: Hematocrit 26.5 % (37.5-50.1); Hemoglobin 8.8 g/dL (12.9-16.9); Mean Corpuscular HGB Conc 33.2 g/dL (31.6-35.5); Mean Corpuscular Hemoglobin 33.6 pg (28.0-33.3); Mean Corpuscular Volume 101.1 fL (83.0-100.0); Mean Platelet Volume 10.5 fL (9.4-12.4); Platelet Count 244 K/mcL (140-400); Red Blood Count 2.62 M/mcL (4.19-5.50); Red Cell Distribution Width 14.6 % (11.5-14.5)
[2018-07-09 03:07] LABS: Calcium 8.4 mg/dL (8.6-10.3); Magnesium 1.8 mg/dL (1.6-2.6); Potassium 4.1 mEq/L (3.5-5.1)
[2018-07-09 03:28] LABS: INR 2.5; Prothrombin Time 28.5 Seconds (9.4-12.1)
[2018-07-09 03:31] LABS: Activated Partial Thrombo Time 33.6 Seconds (26.0-36.0)
[2018-07-09] MEDS: Ipratropium/Albuterol Neb 3 ML IH SCH ×7 (03:43→23:17)
[2018-07-09] MEDS ORDERED: Calcium Gluconate 2,000 MG in 0.9 % Sodium Chloride 100 ML IVPB ONE (03:58)
[2018-07-09] MEDS: FentaNYL (PF) 1,000 MCG in 0.9 % Sodium Chloride 80 ML IVC SCH ×2 (04:21→11:42)
[2018-07-09] MEDS: Piperacillin/Tazobactam 3.375 GM in 0.9 % Sodium Chloride Mini Bag 100 ML IVPB SCH ×3 (04:41→20:14)
[2018-07-09 04:50] LABS: ABG Base Excess -5 mEq/L (-2 to 3); ABG HCO3 21 mEq/L (21-27); ABG Oxygen Saturation 96 % (95-98); ABG PCO2 42 mmHg (35-45); ABG PH 7.31 pH Units (7.32-7.45); ABG PO2 92 mmHg (85-104); ABG TCO2 23 mEq/L (20-26); Blood Gas Modality ASSIST CONTROL; Blood Gas PEEP 10 cm H2O; Blood Gas Respiration Rate 28; Blood Gas VT 550 cc
[2018-07-09] MEDS: Dexmedetomidine HCl 400 MCG/100 ML MLS IVC SCH (05:18)
[2018-07-09] MEDS ORDERED: Furosemide 40 MG/4 ML VIAL ONE (06:02)
[2018-07-09] MEDS ORDERED: Furosemide 40 MG in 0.9 % Sodium Chloride 50 ML IVPB ONE (06:30)
[2018-07-09 07:08] LABS: ABG Base Excess -8 mEq/L (-2 to 3); ABG HCO3 21 mEq/L (21-27); ABG Oxygen Saturation 76 % (95-98); ABG PCO2 56 mmHg (35-45); ABG PH 7.18 pH Units (7.32-7.45); ABG PO2 52 mmHg (85-104); ABG TCO2 23 mEq/L (20-26); Blood Gas Modality ASSIST CONTROL; Blood Gas PEEP 12 cm H2O; Blood Gas Respiration Rate 28; Blood Gas VT 550 cc
[2018-07-09] MEDS: Sodium Bicarbonate 150 MEQ in D5% in Water 1,000 ML IVC SCH ×2 (07:24→17:24)
[2018-07-09] MEDS ORDERED: Perflutren Lipid Microsphere 1.3 ML in 0.9 % Sodium Chloride 8.7 ML IVP ONE (08:10)
[2018-07-09] MEDS: Pantoprazole 40 MG VIAL IVP SCH (08:19)
[2018-07-09 09:37] LABS: ABG Base Excess -6 mEq/L (-2 to 3); ABG HCO3 21 mEq/L (21-27); ABG Oxygen Saturation 75 % (95-98); ABG PCO2 45 mmHg (35-45); ABG PH 7.27 pH Units (7.32-7.45); ABG PO2 45 mmHg (85-104); ABG TCO2 22 mEq/L (20-26); Blood Gas Modality ASSIST CONTROL; Blood Gas PEEP 12 cm H2O; Blood Gas Respiration Rate 28; Blood Gas VT 600 cc
[2018-07-09] MEDS ORDERED: 0.9 % Sodium Chloride 500 ML ONE (09:47)
[2018-07-09 09:53] LABS: ABG Base Excess -6 mEq/L (-2 to 3); ABG HCO3 20 mEq/L (21-27); ABG Oxygen Saturation 78 % (95-98); ABG PCO2 43 mmHg (35-45); ABG PH 7.28 pH Units (7.32-7.45); ABG PO2 48 mmHg (85-104); ABG TCO2 22 mEq/L (20-26); Blood Gas Modality ASSIST CONTROL; Blood Gas PEEP 12 cm H2O; Blood Gas Respiration Rate 28; Blood Gas VT 600 cc
--- NOTE | 2018-07-09 10:08 | Cardiology Consult Note ---
Date of Encounter: 07/09/18 (called 07/08/18 night for ECG reading and pressors) Time of Encounter: 08:00 Assessment and Plan (1) Abnormal ECG Current Visit: Yes Status: Acute pt was V pacing post ROSC, then Afib RVR due to stress and pressors no evidence of STEMI (2) Cardiac arrest with pulseless electrical activity Current Visit: Yes Status: Resolved due to acidemia 2/2 respiratory failure, sepsis the prognosis is poor given sig multi-organ dysfunction (3) Afib Current Visit: No Status: Chronic on warfarin, + epistaxis, anemia can reverse INR if bleeding persist PAF RVR due to systemic stress, can try digoxin if rate ctr is needed given shock. if no A/C, amio is the last resort for rate ctr Qualifiers: Atrial fibrillation type: paroxysmal Qualified Code(s): I48.0 - Paroxysmal atrial fibrillation (4) Acute exacerbation of chronic obstructive airways disease Current Visit: No Status: Acute (5) Respiratory failure, acute and chronic Current Visit: No Status: Acute Qualifiers: Respiratory failure complication: hypoxia Qualified Code(s): J96.21 - Acute and chronic respiratory failure with hypoxia (6) GEM (acute kidney injury) Current Visit: No Status: Resolved (7) Epistaxis Current Visit: Yes Status: Acute (8) Heart failure Current Visit: Yes Status: Chronic HFrEF ICMP s/p CRTD, review Echo LVEF still 15%, global, RV significantly dysfunctional worse than 2016 echo, no sig valvular dysfunction. current post-ROSC for PEA arrest, defer to primary team Qualifiers: Heart failure type: systolic Heart failure chronicity: chronic Qualified Code(s): I50.22 - Chronic systolic (congestive) heart failure Discussion w patient/family: The assessment and plan as outlined above was discussed with the patient and/or family members who expressed understanding and agreement. All questions were answered. Thank you for involving us in the care of your patient. Please call with any questions. History of Present Illness Consult date: 07/08/18 Requesting physician: Finesse Myers Consult reason: ECG abn post ROSC Chief complaint: PEA arrest History of present illness: Mr. Delgado is a 73 year old male ho HFrEF EF 15% ICMP CABG sp [employer]-D, Afib on A/C , COPD, CKD. P/w weakness, cough, dyspnea, epistaxis. Imp COPD exacerbation, sepsis. Course c /b hypercapnic resp failure, PEA arrest, intubation, shock. Called 07/08/18 night for ECG reading post ROSC concern for STEMI and pressors. Reviewed ECGs showed pt was V pacing post ROSC. Overnight pt hypotensive requiring 4 vasopressors and in persistent resp failure, combined acidemic despite ventilation and medical support. Tele Afib RVR due to stress and levo, epi, dopamine for HD support. Pt prognosis likley poor. Past Med Surg Social Fam HX - Past Medical History Medical history: atrial fibrillation, COPD, myocardial infarction, TIA Psychiatric history: no psych history - Past Surgical History Surgical History: coronary bypass (CABG), pacemaker/AICD (subsequent removal due to inf in Jul 2015) Additional surgical history: hernia repair - Social History Smoking Status: Former smoker Smokeless Tobacco Status: No Alcohol use: none Drug use: none - Family History Father Family Member Ethnicity: Non- Living Status: Hx Family Cardiac Disorders: Yes Medications and Allergies Carvedilol [Coreg] 12.5 mg PO BID 02/10/16 [History] Furosemide [Lasix] 80 mg PO DAILY 02/10/16 [History] Lisinopril [Zestril] 20 mg PO DAILY 02/10/16 [History] Pantoprazole Sodium [Protonix] 40 mg PO DAILY 02/10/16 [History] Rivaroxaban [Xarelto] 20 mg PO DAILY 02/10/16 [History] Spironolactone [Aldactone] 12.5 mg PO DAILY 02/10/16 [History] Ipratropium/Albuterol Neb [Duoneb] 3 ml IH Q6HR 30 Days 02/14/16 [Rx] Isosorbide MONOnitrate (24 HR) [Imdur] 30 mg PO DAILY 30 Days tab.er.24h [Rx] Albuterol Sulfate [Albuterol Inhaler] 2 puff IH Q4HR PRN 07/08/18 [History] Allopurinol [Zyloprim 100 MG] 100 mg PO DAILY 07/08/18 [History] Ferrous Sulfate [Iron] 325 - 650 mg PO DAILY 07/08/18 [History] 3 Allergy/AdvReac Type Severity Reaction Status Date / Time No Known Allergies Allergy Verified 07/08/18 17:28 ROS unobtainable: due to endotracheal tube All Systems Review: The remainder of the systems were reviewed and are negative Physical Examination Vital Signs, Last 4 Hours Temp Pulse Resp BP Pulse Ox 07/09/18 09:31 32 107/46 88 07/09/18 08:16 29 94/42 88 07/09/18 08:00 100.9 F H 07/09/18 06:35 30 89/35 86 07/09/18 06:00 122 29 110/38 84 Other: Generalneuro: intubated, sedated HEENT: anicteric Neck: JVP unable to assess Chest: BS coarse B/L, scattered rhonchi and wheeze Heart: IR, tachy, S1/S2, no S3/S4, unable to appreciate M/G/R due to ventilation Abdominal: BS +, soft, ND, NT Peripheral Pulses: radial pulse 1+ B/L, DP vague B/L Skin/Extremities: trace LE edema Results 07/09/18 02:30 07/09/18 02:30 Lab Results 07/08/18 07/08/18 07/08/18 19:40 20:42 20:42 WBC Hgb Hct Plt Count INR 3.0 APTT Sodium 133 L 137 Potassium 5.7 H D 5.1 Chloride 112 H 116 H Carbon Dioxide 11 L 12 L BUN 93 H 90 H Creatinine 2.98 H 3.04 H Glucose 349 H 273 H Calcium 9.1 8.3 L Magnesium 1.9 Total Bilirubin 0.7 AST 11 L ALT 8 Alkaline Phosphatase 77 B-Natriuretic Peptide 07/08/18 07/09/18 07/09/18 21:33 02:30 02:30 WBC 22.2 H 14.0 H Hgb 9.3 L 8.8 L Hct 29.2 L 26.5 L Plt Count 288 244 INR APTT Sodium 138 Potassium 4.1 Chloride 108 H Carbon Dioxide 20 L BUN 83 H Creatinine 2.64 H Glucose 162 H Calcium 8.4 L Magnesium 1.8 Total Bilirubin AST ALT Alkaline Phosphatase B-Natriuretic Peptide 07/09/18 07/09/18 02:36 02:49 WBC Hgb Hct Plt Count INR 2.5 APTT 33.6 Sodium Potassium Chloride Carbon Dioxide BUN Creatinine Glucose Calcium Magnesium Total Bilirubin AST ALT Alkaline Phosphatase B-Natriuretic Peptide 2687 H - Imaging and Cardiology Chest Xray: report reviewed Echo: pending, report reviewed, image reviewed Other Results: Tele reviewed - EKG Interpretation EKG results cardiology: personally reviewed Consult Discharge Plan - Plan Referrals: Juan Jose Willingham DO [Primary Care Provider] -
[2018-07-09 10:37] LABS: VBG HCO3 22 mEq/L (21-27); VBG PCO2 52 mmHg (41-51); VBG PH 7.24 pH Units (7.32-7.42); VBG PO2 89 mmHg (25-50)
[2018-07-09 10:38] LABS: Hematocrit 25.9 % (37.5-50.1); Hemoglobin 8.7 g/dL (12.9-16.9); Mean Corpuscular HGB Conc 33.6 g/dL (31.6-35.5); Mean Corpuscular Hemoglobin 33.6 pg (28.0-33.3); Mean Platelet Volume 10.4 fL (9.4-12.4); Monocytes # 0.6 K/mcL (0.0-1.3); Nucleated Red Blood Cells 0.3 /100 WBC (0); Platelet Count 258 K/mcL (140-400); Red Blood Count 2.59 M/mcL (4.19-5.50); Red Cell Distribution Width 14.7 % (11.5-14.5)
[2018-07-09 11:29] LABS: ABG Base Excess -8 mEq/L (-2 to 3); ABG HCO3 18 mEq/L (21-27); ABG Oxygen Saturation 77 % (95-98); ABG PCO2 37 mmHg (35-45); ABG PH 7.29 pH Units (7.32-7.45); ABG PO2 47 mmHg (85-104); ABG TCO2 19 mEq/L (20-26); Blood Gas Modality ASSIST CONTROL; Blood Gas PEEP 12 cm H2O; Blood Gas Respiration Rate 28; Blood Gas VT 600 cc
[2018-07-09 11:39] LABS: Blood Gas PEEP 12 cm H2O; Blood Gas Respiration Rate 18; Blood Gas VT 600 cc; VBG HCO3 19 mEq/L (21-27); VBG PCO2 40 mmHg (41-51); VBG PH 7.27 pH Units (7.32-7.42); VBG PO2 28 mmHg (25-50)
[2018-07-09 11:58] LABS: Lymphocytes # 1.6 K/mcL (0.6-4.6); Neutrophils # 13.7 K/mcL (1.6-8.9)
[2018-07-09 11:59] LABS: Platelet Estimate Normal (Normal)
[2018-07-09] MEDS: Hydrocortisone Sodium Succ 100 MG/2 ML VIAL IVP SCH ×2 (12:12→18:34)
[2018-07-09] MEDS ORDERED: Ringers Solution, Lactated 1,000 ML IVC ONE (12:26)
[2018-07-09] MEDS: EPINEPHRINE IVC SCH ×3 (12:45→21:44)
[2018-07-09] MEDS: D5 IVC SCH ×3 (12:45→21:44)
[2018-07-09] MEDS: WATER IVC SCH ×3 (12:45→21:44)
[2018-07-09] MEDS ORDERED: Amiodarone Premix 150 MG/100 ML BAG IVPB ONE (12:51)
[2018-07-09] MEDS ORDERED: Amiodarone Premix 360 MG/200 ML BAG IVC SCH (13:00)
[2018-07-09] MEDS ORDERED: Ringers Solution, Lactated 500 ML IVC ONE (14:54)
[2018-07-09 15:10] LABS: ABG Base Excess -9 mEq/L (-2 to 3); ABG HCO3 18 mEq/L (21-27); ABG Oxygen Saturation 79 % (95-98); ABG PCO2 46 mmHg (35-45); ABG PH 7.21 pH Units (7.32-7.45); ABG PO2 53 mmHg (85-104); ABG TCO2 19 mEq/L (20-26); Blood Gas Modality ASSIST CONTROL; Blood Gas PEEP 18 cm H2O; Blood Gas Respiration Rate 30; Blood Gas VT 600 cc
[2018-07-09] MEDS ORDERED: Vecuronium 50 MG in 0.9 % Sodium Chloride 200 ML IVC SCH (15:15)
[2018-07-09 16:11] LABS: VBG Ionized Calcium 1.03 mmol/L (1.15-1.35)
[2018-07-09 16:18] LABS: Hematocrit 24.8 % (37.5-50.1); Mean Corpuscular HGB Conc 32.3 g/dL (31.6-35.5); Mean Corpuscular Hemoglobin 32.8 pg (28.0-33.3); Mean Corpuscular Volume 101.6 fL (83.0-100.0); Mean Platelet Volume 10.9 fL (9.4-12.4); Nucleated Red Blood Cells 0.5 /100 WBC (0); Platelet Count 240 K/mcL (140-400); Red Blood Count 2.44 M/mcL (4.19-5.50); Red Cell Distribution Width 14.6 % (11.5-14.5)
[2018-07-09 16:26] LABS: Albumin 2.6 g/dL (3.5-5.7); Albumin/Globulin Ratio 1.5 (1.1-2.2); Bilirubin,Direct 1.2 mg/dL (0.0-0.2); Bilirubin,Indirect 0.3 mg/dL (0.0-1.2); Bilirubin,Total 1.5 mg/dL (0.3-1.0); Globulin 1.7 g/dL (2.4-3.5); Magnesium 1.5 mg/dL (1.6-2.6); Phosphorous 5.6 mg/dL (2.7-4.5); Total Protein 4.3 g/dL (6.4-8.9)
[2018-07-09] MEDS ORDERED: Potassium Phosphate 44 MEQ in 0.9 % Sodium Chloride 250 ML IVPB PRN (16:33)
[2018-07-09] MEDS ORDERED: Potassium Chloride 40 MEQ/200 ML BAG IVPB PRN (16:33)
[2018-07-09 16:44] LABS: Eosinophils # 0.5 K/mcL (0.0-0.6); Lymphocytes # 1.4 K/mcL (0.6-4.6); Monocytes # 1.4 K/mcL (0.0-1.3); Neutrophils # 19.8 K/mcL (1.6-8.9); Platelet Estimate Normal (Normal)
[2018-07-09 17:40] LABS: ABG Base Excess -10 mEq/L (-2 to 3); ABG HCO3 17 mEq/L (21-27); ABG Oxygen Saturation 75 % (95-98); ABG PCO2 41 mmHg (35-45); ABG PH 7.22 pH Units (7.32-7.45); ABG PO2 48 mmHg (85-104); ABG TCO2 18 mEq/L (20-26); Blood Gas Modality ASSIST CONTROL; Blood Gas PEEP 18 cm H2O; Blood Gas Respiration Rate 30; Blood Gas VT 600 cc
[2018-07-09 18:39] LABS: Calcium 7.2 mg/dL (8.6-10.3); Potassium 5.3 mEq/L (3.5-5.1)
[2018-07-09] MEDS: Vasopressin 40 UNIT in D5% in Water 100 ML IV SCH (18:39)
[2018-07-09 19:58] LABS: ABG Base Excess -13 mEq/L (-2 to 3); ABG HCO3 15 mEq/L (21-27); ABG Oxygen Saturation 64 % (95-98); ABG PCO2 42 mmHg (35-45); ABG PH 7.16 pH Units (7.32-7.45); ABG PO2 42 mmHg (85-104); ABG TCO2 16 mEq/L (20-26); Blood Gas Modality ASSIST CONTROL; Blood Gas PEEP 14 cm H2O; Blood Gas Respiration Rate 30; Blood Gas VT 600 cc
--- NOTE | 2018-07-09 20:08 | Event Note ---
Date of Encounter: 07/09/18 Time of Encounter: 20:04 I had a meeting with the family to update them about the patient's status. He is on multiple pressors, in metabolic acidosis with pO2 40, Spo2 55%. Lactic acid is rising now 8.6. Family decided it would be very traumatic experience for patient to undergo chest compressions and would like the patient to be continued on current treatment however, if he has a cardiac arrest, to make patient comfortable. Changed code status to DNRCCA.
[2018-07-09 20:10] LABS: Basophils # 0.1 K/mcL (0.0-0.2); Basophils % 0.2 %; Hematocrit 25.8 % (37.5-50.1); Hemoglobin 8.3 g/dL (12.9-16.9); Immature Granulocytes % 3.5 % (0-4); Lymphocytes # 1.1 K/mcL (0.6-4.6); Lymphocytes % 3.8 %; Mean Corpuscular HGB Conc 32.2 g/dL (31.6-35.5); Mean Corpuscular Hemoglobin 32.4 pg (28.0-33.3); Mean Corpuscular Volume 100.8 fL (83.0-100.0); Mean Platelet Volume 11.1 fL (9.4-12.4); Monocytes % 3.5 %; Neutrophils # 26.1 K/mcL (1.6-8.9); Nucleated Red Blood Cells 0.8 /100 WBC (0); Platelet Count 227 K/mcL (140-400); Red Blood Count 2.56 M/mcL (4.19-5.50); Red Cell Distribution Width 15.1 % (11.5-14.5)
[2018-07-09 20:38] LABS: Hypochromasia Present (Not Present)
[2018-07-09 20:38] LABS: Alanine Aminotransferase > 500 Units/L (7-52); Albumin 2.6 g/dL (3.5-5.7); Albumin/Globulin Ratio 1.6 (1.1-2.2); Alkaline Phosphatase 56 Units/L (34-104); Bilirubin,Direct 1.6 mg/dL (0.0-0.2); Bilirubin,Indirect 0.4 mg/dL (0.0-1.2); Globulin 1.6 g/dL (2.4-3.5); Phosphorous 6.8 mg/dL (2.7-4.5); Potassium 5.8 mEq/L (3.5-5.1); Total Protein 4.2 g/dL (6.4-8.9)
[2018-07-09 20:39] LABS: Anisocytosis 1+ (Not Present); Platelet Estimate Normal (Normal)
[2018-07-09 20:49] LABS: Aspartate Amino Transferase 1307 Units/L (13-39)
[2018-07-09] MEDS ORDERED: Piperacillin/Tazobactam 3.375 GM in 0.9 % Sodium Chloride Mini Bag 100 ML IVPB SCH (21:00)
[2018-07-09 23:01] LABS: Hematocrit 22.5 % (37.5-50.1); Hemoglobin 7.1 g/dL (12.9-16.9); Immature Platelets 7.6 % (1.1-6.1); Mean Corpuscular HGB Conc 31.6 g/dL (31.6-35.5); Mean Corpuscular Hemoglobin 32.9 pg (28.0-33.3); Mean Corpuscular Volume 104.2 fL (83.0-100.0); Mean Platelet Volume 11.1 fL (9.4-12.4); Platelet Count 203 K/mcL (140-400); Red Blood Count 2.16 M/mcL (4.19-5.50)
[2018-07-09 23:09] LABS: VBG Ionized Calcium 0.93 mmol/L (1.15-1.35)
[2018-07-09 23:25] LABS: Eosinophils # 0.6 K/mcL (0.0-0.6); Hypochromasia Present (Not Present); Lymphocytes # 3.5 K/mcL (0.6-4.6); Monocytes # 0.6 K/mcL (0.0-1.3); Platelet Estimate Normal (Normal)
[2018-07-09 23:43] LABS: Magnesium 2.1 mg/dL (1.6-2.6)
[2018-07-10] MEDS: Artificial Tears SOLN 15 ML BOTTLE BOTH EYES SCH (00:45)
[2018-07-10] MEDS: Hydrocortisone Sodium Succ 100 MG/2 ML VIAL IVP SCH (00:45)
[2018-07-10] MEDS: Insulin LISPRO 300 UNITS/3 ML VIAL SQ SCH (00:56)
[2018-07-10 01:08] VITALS: BP 60/30
[2018-07-10] MEDS ORDERED: Aminoglycoside Consult 1 EACH MC ONE (01:14)
--- NOTE | 2018-07-10 01:20 | Death Note ---
Discharge Sum: Summary - Date and Time Date of admission: 07/08/18 18:11 Date of : 07/10/18 Time of : 01:15 - Summary Details: Mr Delgado is 73 y/o male admitted for sepsis, pneumonia, and developed acute respiratory failure and cardiopulmonary arrest in the emergency room. Ross was achieved after ACLS and patient was emergently intubated. EKG showed ST elevations in inferior leads 2, aVF. After the patient was transferred to ICU and required multiple vasopressors, bicarbonate drip. In the next 24 hours patient dependence on vasopressor increased. He developed severe metabolic acidosis, lactic acidosis. His PCO2 was 40 and SPO2 was in the 30s. Around 1 AM family decided to stop all interventions and keep patient comfortable. Patient's vasopressors were discontinued. At 1:15 AM patient did not have any heart sounds or pulse. Asystole on the monitor. Family was at bedside. - Additional Data Confirmation of as documented by pronouncing clinician: no pulse, no heart sounds Family: at bedside Attending/PCP notified?: Yes Attending physician: Dr. Powell Was code activated?: No Autopsy requested?: No Hospice patient?: No Discharge Sum: Diag - PCOD Probable Cause of : Cardiac arrest Discharge Sum: Prov - Provider Primary care physician: Juan Jose Willingham, DO Consults: 07/08/18 20:20 Consult to Cardiology [CONS] Routine Comment: Consulting Provider: Cardiology Shawna Reason for Consult: S/p ROSC, systolic CHF Call Completed: Yes 07/08/18 20:33 Consult to Critical Care [CONS] Routine Consulting Provider: Pulm Crit Care & Sleep Shawna Reason for Consult: Vent management Call Completed: Yes Pronouncing clinician: Kimo Estrada
--- NOTE | 2018-07-11 22:14 | Electrocardiograph Report ---
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
--- NOTE | 2018-07-11 22:16 | Electrocardiograph Report ---
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
--- NOTE | 2018-07-11 22:27 | Electrocardiograph Report ---
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
--- NOTE | 2018-07-11 22:31 | Electrocardiograph Report ---
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
== END 2018-07-10 01:15 | disposition expired | DRG 871 ==
LOC: EMEROOARM 14:52 → 2NNU 18:11 → ICNU 19:28
PROVIDERS: ADMIT Student in an Organized Health Care Education/Training Program; ATTEND Internal Medicine